=== PATIENT | male | born 1945 | race Asian ===

== ENCOUNTER 2017-12-14 08:00 | Outpatient (CLI) | payer MEDICARE, OTHER ==
[2017-12-14 18:52] LABS: CALCIUM 9.2 mg/dL (8.5-10.3); CREATININE 1.2 mg/dL (0.6-1.2)
[2017-12-14 18:59] LABS: BASOPHILS # (AUTO) 0.1 10^3/uL (0.0-0.1); BASOPHILS % (AUTO) 1.1 %; EOSINOPHILS # (AUTO) 0.2 10^3/uL (0.0-0.7); EOSINOPHILS % (AUTO) 4.4 %; HGB - HEMOGLOBIN 15.6 g/dL (14.0-18.0); LYMPHOCYTES # (AUTO) 1.5 10^3/uL (1.5-3.5); LYMPHOCYTES % (AUTO) 29.6 %; MEAN CORPUSCULAR HEMOGLOBIN 30.3 pg (27.0-31.0); MEAN CORPUSCULAR HGB CONC 33.8 g/dL (32.0-36.0); MEAN CORPUSCULAR VOLUME 89.7 fL (80.0-94.0); MEAN PLATELET VOLUME 7.6 fL (7.4-11.4); MONOCYTES # (AUTO) 0.6 10^3/uL (0.0-1.0); MONOCYTES % (AUTO) 11.4 %; NEUTROPHILS # (AUTO) 2.7 10^3/uL (1.5-6.6); NEUTROPHILS % (AUTO) 53.5 %; PLT - PLATELET COUNT 196 10^3/uL (130-450); RED BLOOD COUNT 5.13 10^6/uL (4.70-6.10); RED CELL DISTRIBUTION WIDTH 13.6 % (12.0-15.0)
== END 2017-12-14 08:01 | disposition home or self-care (01) ==
LOC: LAB.WCP 08:00
PROVIDERS: ATTEND Family Medicine
DX: I12.9 Hypertensive chronic kidney disease with stage 1 through stage 4 chronic kidney disease, or unspecified chronic kidney disease (principal); N18.3 Chronic kidney disease, stage 3 (moderate); E11.9 Type 2 diabetes mellitus without complications
CPT/HCPCS: 36415; 80048; 85025

== ENCOUNTER 2018-03-21 10:02 | Emergency (ER) | payer MEDICARE, OTHER ==
[2018-03-21 10:53] LABS: BASOPHILS % (AUTO) 0.9 %; EOSINOPHILS # (AUTO) 0.2 10^3/uL (0.0-0.7); EOSINOPHILS % (AUTO) 3.3 %; HGB - HEMOGLOBIN 15.3 g/dL (14.0-18.0); LYMPHOCYTES % (AUTO) 22.1 %; MEAN CORPUSCULAR HEMOGLOBIN 30.7 pg (27.0-31.0); MEAN CORPUSCULAR HGB CONC 34.8 g/dL (32.0-36.0); MEAN CORPUSCULAR VOLUME 88.4 fL (80.0-94.0); MEAN PLATELET VOLUME 6.7 fL (7.4-11.4); MONOCYTES # (AUTO) 0.4 10^3/uL (0.0-1.0); NEUTROPHILS % (AUTO) 64.7 %; PLT - PLATELET COUNT 179 10^3/uL (130-450); RED BLOOD COUNT 4.97 10^6/uL (4.70-6.10); RED CELL DISTRIBUTION WIDTH 13.6 % (12.0-15.0); WHITE BLOOD COUNT 4.6 x10^3/uL (4.8-10.8)
[2018-03-21 11:06] LABS: ALBUMIN 3.8 g/dL (3.2-5.5); ALBUMIN/GLOBULIN RATIO 1.3 (1.0-2.2); BILIRUBIN,TOTAL 1.1 mg/dL (0.2-1.0); CREATININE 1.2 mg/dL (0.6-1.2); TOTAL PROTEIN 6.7 g/dL (6.7-8.2)
--- NOTE | 2018-03-21 11:25 | CT Report ---
Reason: dizzy Procedure Date: 03/21/2018 Accession Number: [id number] / [id number] Procedure: CT - Head W/O CPT Code: FULL RESULT: EXAM: CT HEAD EXAM DATE: 03/21/2018 11:03 AM. CLINICAL HISTORY: Dizzy. COMPARISON: None. TECHNIQUE: Multiaxial CT images were obtained from the foramen magnum to the vertex. Reformats: Sagittal and coronal. IV contrast: None. In accordance with CT protocol optimization, one or more of the following dose reduction techniques were utilized for this exam: automated exposure control, adjustment of mA and/or KV based on patient size, or use of iterative reconstructive technique. FINDINGS: Parenchyma: No intraparenchymal hemorrhage. No evidence of mass, midline shift, or CT findings of infarction. Friend-white differentiation is distinct. Extraaxial Spaces: Normal for age. No subdural or epidural collections identified. Ventricles: Normal in size and position. Sinuses and Orbits: Imaged paranasal sinuses, orbits, and mastoids show no significant abnormality. Bones: No evidence of fracture or calvarial defect. Other: None. IMPRESSION: No acute intracranial abnormality. RADIA
[2018-03-21 11:29] LABS: BILIRUBIN,URINE NEGATIVE (NEGATIVE); GLUCOSE, URINE (UA) NEGATIVE (NEGATIVE); KETONES,URINE (UA) NEGATIVE (NEGATIVE); LEUKOCYTE ESTERASE, URINE NEGATIVE (NEGATIVE); NITRITE,URINE NEGATIVE (NEGATIVE); OCCULT BLOOD,URINE TRACE-INTA (NEGATIVE); PH,URINE 6.5 PH (5.0-7.5); PROTEIN,URINE NEGATIVE (NEGATIVE); UROBILINOGEN,URINE 0.2 (NORMAL) E.U./dL (NORMAL)
[2018-03-21 11:34] LABS: CLARITY,URINE CLEAR (CLEAR)
--- NOTE | 2018-03-21 12:37 | ED Physician Documentation ---
History of Present Illness - Stated complaint Stated Complaint: DIZZY WHEN GETTING UP - Chief complaint Chief Complaint: Neuro - History obtained from History obtained from: Patient, Family - History of Present Illness Timing: How many days ago (5) Pain level max: 0 Pain level now: 0 - Additonal information Additional information: 72-year-old male with history of hypertension and borderline diabetes here with complain of dizziness the past 5 days described as room spinning when he gets up from lying position to sitting up and standing up And when turning his head a certain position. Patient stated he had one episode of nausea and vomiting 5 days ago. He also stated that he had been having ringing on his ears the past week or so. Patient wears a hearing aid. Last time it was checked was a year ago. Patient denies any trauma, travel, sick contacts or recent illness. Review of Systems Ten Systems: 10 systems reviewed and negative Constitutional: denies: Fever, Chills, Myalgias, Fatigue Eyes: denies: Loss of vision, Decreased vision Nose: denies: Rhinorrhea / runny nose, Congestion Throat: denies: Sore throat Cardiac: denies: Chest pain / pressure Respiratory: denies: Dyspnea, Cough GI: reports: Nausea, Vomiting. denies: Abdominal Pain, Diarrhea Musculoskeletal: denies: Neck pain, Back pain, Extremity pain Neurologic: denies: Generalized weakness, Focal weakness, Numbness, Difficulty speaking, Near syncope, Syncope, Confused, Altered mental status, Headache, Head injury, LOC PD PAST MEDICAL HISTORY - Past Medical History Cardiovascular: Hypertension Endocrine/Autoimmune: HyPOthyroidism HEENT: Other Musculoskeletal: Gout - Past Surgical History HEENT: Other - Present Medications Home Medications: Ambulatory Orders Medication Instructions Recorded Confirmed Alfuzosin HCl [Alfuzosin HCl ER] 03/21/18 Allopurinol 03/21/18 Levothyroxine Sodium [Synthroid] 03/21/18 Losartan [Cozaar] 03/21/18 Meclizine [Antivert] 12.5 mg PO Q6H PRN #20 tablet 03/21/18 Metoprolol Succinate [Toprol Xl] 03/21/18 Simvastatin 03/21/18 hydroCHLOROthiazide 03/21/18 [Hydrochlorothiazide] - Allergies Allergies/Adverse Reactions: Allergies Allergy/AdvReac Type Severity Reaction Status Date / Time No Known Drug Allergies Allergy Verified 03/21/18 10:23 - Social History Does the pt smoke?: No Smoking Status: Never smoker Does the pt drink ETOH?: No Does the pt have substance abuse?: No - Immunizations Immunizations are current?: Yes PD ED PE NORMAL - Vitals Vital signs reviewed: Yes - General General: Alert and oriented X 3, No acute distress, Well developed/nourished - HEENT HEENT: Atraumatic, PERRL, EOMI, Moist mucous membranes, Pharynx benign, Other (Hearing aid in place. No nystagmus.) - Neck Neck: Supple, no meningeal sign, No bony TTP - Cardiac Cardiac: RRR, No murmur - Respiratory Respiratory: Clear bilaterally - Abdomen Abdomen: Normal bowel sounds, Soft, Non tender, Non distended - Derm Derm: Normal color, Warm and dry - Extremities Extremities: No deformity, No tenderness to palpate, Normal ROM s pain, No edema - Neuro Neuro: Alert and oriented X 3, measurer machine 2-12 intact, No motor deficit, No sensory deficit, Normal speech - Psych Psych: Normal mood, Normal affect Results - Vitals Vitals: Vital Signs - 24 hr 03/21/18 03/21/18 03/21/18 10:17 11:10 11:13 Temperature 36.7 C Heart Rate 66 52 L 54 L Heart Rate [ Sitting] Heart Rate [ Standing] Heart Rate [ Supine] Respiratory 18 18 20 Rate Blood Pressure 182/83 H 167/79 H 154/78 H Blood Pressure [Sitting] Blood Pressure [Standing] Blood Pressure [Supine] O2 Saturation 98 98 99 03/21/18 03/21/18 03/21/18 11:45 11:46 11:49 Temperature Heart Rate Heart Rate [ 53 L Sitting] Heart Rate [ 63 Standing] Heart Rate [ 51 L Supine] Respiratory Rate Blood Pressure Blood Pressure 164/92 H [Sitting] Blood Pressure 143/86 H [Standing] Blood Pressure 167/76 H [Supine] O2 Saturation Oxygen O2 Source Room air - EKG (time done) 1017 Rate: Rate (enter#) (66) Rhythm: NSR [place]: Normal Intervals: Prolonged [place] QRS: Normal Ischemia: Normal ST segments - Labs Labs: Laboratory Tests 03/21/18 03/21/18 03/21/18 10:46 10:46 10:46 WBC 4.6 L RBC 4.97 Hgb 15.3 Hct 43.9 MCV 88.4 MCH 30.7 MCHC 34.8 RDW 13.6 Plt Count 179 MPV 6.7 L Neut # (Auto) 3.0 Lymph # (Auto) 1.0 L [place] # (Auto) 0.4 Eos # (Auto) 0.2 Baso # (Auto) 0.0 Absolute Nucleated RBC 0.00 Nucleated RBC % 0.0 Sodium 133 L Potassium 3.5 Chloride 98 L Carbon Dioxide 29 Anion Gap 6.0 BUN 21 H Creatinine 1.2 Estimated GFR (MDRD) 60 L Glucose 183 H Calcium 9.0 Total Bilirubin 1.1 H AST 27 ALT 33 Alkaline Phosphatase 60 Troponin I < 0.04 Total Protein 6.7 Albumin 3.8 Globulin 2.9 Albumin/Globulin Ratio 1.3 Lipase 30 Urine Color Urine Clarity Urine pH Ur Specific [place] Urine Protein Urine Glucose (UA) Urine Ketones Urine Occult Blood Urine Nitrite Urine Bilirubin Urine Urobilinogen Ur Leukocyte Esterase Ur Microscopic Review Urine Culture Comments 03/21/18 11:15 WBC RBC Hgb Hct MCV MCH MCHC RDW Plt Count MPV Neut # (Auto) Lymph # (Auto) [place] # (Auto) Eos # (Auto) Baso # (Auto) Absolute Nucleated RBC Nucleated RBC % Sodium Potassium Chloride Carbon Dioxide Anion Gap BUN Creatinine Estimated GFR (MDRD) Glucose Calcium Total Bilirubin AST ALT Alkaline Phosphatase Troponin I Total Protein Albumin Globulin Albumin/Globulin Ratio Lipase Urine Color YELLOW Urine Clarity CLEAR Urine pH 6.5 Ur Specific [place] 1.015 Urine Protein NEGATIVE Urine Glucose (UA) NEGATIVE Urine Ketones NEGATIVE Urine Occult Blood TRACE-INTA Urine Nitrite NEGATIVE Urine Bilirubin NEGATIVE Urine Urobilinogen 0.2 (NORMAL) Ur Leukocyte Esterase NEGATIVE Ur Microscopic Review NOT INDICATED Urine Culture Comments NOT INDICATED PD MEDICAL DECISION MAKING - ED course Complexity details: reviewed results, re-evaluated patient, considered differential (Benign positional vertigo, intracranial bleed, TIA, anemia, electrolyte imbalance), d/w patient, d/w family ED course: [address] head scan in no acute distress.1200 patient stated tolerated orthostatic vital signs. Patient and inform of test results. Patient agrees to go home. We will discharged on meclizine. He will follow-up with his primary doctor and ENT doctor. Departure - Departure Disposition: Home, Self Care Clinical Impression: Dizziness, Benign positional vertigo Condition: Stable Instructions: ED Dizziness UKO, ED Vertigo Unspecified, Meclizine Prescriptions: Meclizine [Antivert] 12.5 mg PO Q6H PRN #20 tablet PRN Reason: Vertigo Comments: Take the meclizine as needed for your vertigo. Call your primary doctor and ENT doctor for reevaluation and recheck of your hearing aids. Maintain safety. Get up slowly. If worse return to the emergency room.
[2018-03-21 12:55] VITALS: BP 152/72
== END 2018-03-21 12:55 | disposition home or self-care (01) ==
LOC: ED 10:02
DX: H81.10 Benign paroxysmal vertigo, unspecified ear (principal); I44.0 Atrioventricular block, first degree; I10 Essential (primary) hypertension; E11.9 Type 2 diabetes mellitus without complications; E03.9 Hypothyroidism, unspecified
CPT/HCPCS: 36415; 70450; 80053; 81001; 81003; 83690; 84484; 85025; 87086; 93005; 99283; 99284

== ENCOUNTER 2018-06-23 06:44 | Day surgery (SDC) | payer MEDICARE, OTHER ==
[2018-06-23] MEDS ORDERED: KETOROLAC 0.45% OPHTH DROPS ONE (06:58)
[2018-06-23] MEDS ORDERED: PHENYLEPHRINE 2.5% OPHTH 2 ML DROPS ONE (06:59)
[2018-06-23] MEDS ORDERED: CYCLOPENTOLATE 1% OPHTH DROPS 2 ML ONE (06:59)
[2018-06-23] MEDS ORDERED: PROPARACAINE 0.5% OPHTH DROPS 15 ML ONE (06:59)
[2018-06-23] MEDS ORDERED: TRIAMCIN/MOXIFLOX OPHTHALMIC 0.6 ML VIAL IO ONE ×2 (07:07→08:29)
[2018-06-23] MEDS ORDERED: EPINEPHrine 1 MG/ML AMP ONE (07:07)
[2018-06-23] MEDS ORDERED: VANCOMYCIN OPHTHALMI 8MG/0.8ML 8 MG/0.8 ML SYRINGE IO ONE ×2 (07:08→08:30)
[2018-06-23] MEDS ORDERED: BRIMONIDINE 0.2% OPHTH DROPS 5 ML ONE (07:08)
[2018-06-23] MEDS ORDERED: TIMOLOL 0.5% OPHTH DROPS ONE (07:08)
[2018-06-23] MEDS ORDERED: BSS/LIDOCAINE/EPINEPHRINE 1 ML SYRINGE ONE (07:08)
[2018-06-23] MEDS ORDERED: PHENYLEPHRINE 2.5% OPHTH 2 ML DROPS RIGHTEYE ONE (07:20)
[2018-06-23] MEDS ORDERED: PROPARACAINE 0.5% OPHTH DROPS 15 ML RIGHTEYE ONE (07:20)
[2018-06-23] MEDS ORDERED: CYCLOPENTOLATE 1% OPHTH DROPS 2 ML RIGHTEYE ONE (07:20)
[2018-06-23] MEDS ORDERED: KETOROLAC 0.45% OPHTH DROPS RIGHTEYE ONE (07:20)
[2018-06-23] MEDS ORDERED: LACTATED RINGERS 500 ML IV ONE (07:28)
--- NOTE | 2018-06-23 07:45 | ANESTHESIA ---
Pre-Anesthesia VS, & Labs - Diagnosis left nuclear sclerotic cataract - Procedure left extraction cataract with lens implant Vital Signs: Temp Pulse Resp BP Pulse Ox 36.7 C 56 L 16 138/72 H 94 06/23/18 07:18 06/23/18 07:18 06/23/18 07:18 06/23/18 07:18 06/23/18 07:18 Height 5 ft 7 in Weight (kg) 102.5 kg Body Mass Index 34.4 - NPO >8 hours Home Medications and Allergies Home Medications: Ambulatory Orders Aspirin 81 mg PO DAILY 06/23/18 Alfuzosin HCl [Alfuzosin HCl ER] 10 mg PO DAILY 03/21/18 Allopurinol 50 mg PO DAILY 03/21/18 Levothyroxine Sodium [Synthroid] 15 mcg PO DAILY 03/21/18 Losartan [Cozaar] 50 mg PO DAILY 03/21/18 Metoprolol Succinate [Toprol Xl] 100 mg PO DAILY 03/21/18 Simvastatin 40 mg PO DAILY 03/21/18 hydroCHLOROthiazide [Hydrochlorothiazide] 25 mg PO DAILY 03/21/18 Aspirin 81 mg PO DAILY 06/23/18 Allergies/Adverse Reactions: Allergies Allergy/AdvReac Type Severity Reaction Status Date / Time No Known Drug Allergies Allergy Verified 06/23/18 07:31 Anes History & Medical History - Anesthetic History Anesthesia Complications: reports: No previous complications Family history of Anesthesia Complications: Denies Family history of Malignant Hyperthermia: Denies - Medical History Cardiovascular: reports: Hypertension, High cholesterol Pulmonary: reports: None Gastrointestinal: reports: None Urinary: reports: Renal insuffiency Musculoskeletal: reports: Gout Endocrine/Autoimmune: reports: HyPOthyroidism Skin: reports: None Smoking Status: Never smoker - Surgical History Eyes Ears Nose Throat (EENT): Other Exam General: Alert, Oriented x3, Cooperative, No acute distress Dental: Partials Upper Mouth Openin Fingerbreadth Neck Mobility: Normal Mallampati classification: III Thyromental Distance: greater than 6 cm Respiratory: Lungs clear, Normal breath sounds, No respiratory distress, No accessory muscle use Cardiovascular: Normal S1, Normal S2 Mental/Cognitive Status: Alert/Oriented X3, Normal for patient Plan Anesthesia Type: MAC Consent for Procedure(s) Verified and Reviewed: Yes Code Status: Attempt Resuscitation ASA classification: 2-Mild systemic disease Is this case an emergency?: No
[2018-06-23] MEDS ORDERED: MIDAZOLAM 2 MG/2 ML VIAL IVP ONE (08:27)
[2018-06-23] MEDS ORDERED: fentaNYL 100 MCG/2 ML VIAL IVP ONE (08:27)
[2018-06-23] MEDS ORDERED: EPINEPHrine 1 MG/ML AMP IVP ONE (08:28)
[2018-06-23] MEDS ORDERED: BRIMONIDINE 0.2% OPHTH DROPS 5 ML OPTH ONE (08:28)
[2018-06-23] MEDS ORDERED: BSS/LIDOCAINE/EPINEPHRINE 1 ML SYRINGE IO ONE (08:29)
[2018-06-23] MEDS ORDERED: CHONDR SULF/HYALURONATE SYRINGE IO ONE (08:29)
[2018-06-23] MEDS ORDERED: TIMOLOL 0.5% OPHTH DROPS OPTH ONE (08:29)
[2018-06-23 08:51] VITALS: BP 120/66
--- NOTE | 2018-06-23 10:52 | OPERATIVE REPORT ---
DATE OF SERVICE: 06/23/2018 Physician: Jamal Harrell MD PREOPERATIVE DIAGNOSIS: Visually significant cataract, left eye. This was his first cataract surger y. POSTOPERATIVE DIAGNOSIS: Visually significant cataract, left eye. This was his first cataract surge ry. NAME OF PROCEDURE: Phacoemulsification with posterior chamber intraocular lens implant, left eye. SURGEON: Jamal Harrell MD ANESTHESIA: Monitored anesthesia care. COMPLICATIONS: None. OPERATIVE INDICATIONS: This is a 73-year-old man with progressive vision loss in the left eye due to 4+ nuclear sclerotic cataract. Best corrected visual acuity was 20/70 with glare to 20/100 in the l eft eye. Indications for surgery were overall decrease in vision, difficulty seeing words on a compu ter screen, difficulty reading, difficulty seeing words, closed captions or game scores on TV, diffic ulty seeing street signs, difficulty driving in low light or at night, difficulty driving at night be cause of headlights from other vehicles, difficulty with glare or bright lights in any situation, and difficulty tracking a golf ball. He was consented at length concerning risks and benefits of catara ct surgery, after which he expressed a desire to proceed with surgery. OPERATIVE PROCEDURE: The patient was taken to OR #3 and placed under monitored anesthesia care. A s urgical timeout was conducted confirming correct patient, correct procedure, and correct surgical sit e. He was given topical anesthesia and then prepped and draped in the usual sterile fashion. The ey e was entered at the 6 and 3 o'clock positions. Intracameral Shugarcaine was injected into the anter ior chamber, followed by Viscoat. A continuous-tear curvilinear capsulorrhexis was performed. The n ucleus was hydrodissected and phacoemulsified and the cortex evacuated using automated infusion and a spiration. Provisc was injected in the capsular bag, and a 20.0 diopter intraocular lens inserted in the bag. Approximately 0.8 mL of a mixture of triamcinolone, moxifloxacin and vancomycin was inject ed subconjunctivally in the superior quadrant for infection and inflammation prophylaxis. I and A, w as used to evacuate the viscoelastic materials. The eye was inflated to physiologic pressure using b alanced salt solution and found to be watertight. Patient was taken from the operating room in good condition with postoperative instructions. TD: 06/23/2018 08:54
== END 2018-06-23 06:45 | disposition home or self-care (01) ==
LOC: SDS 06:44
PROVIDERS: ATTEND Ophthalmology
PROC: 08RK3JZ Replacement of Left Lens with Synthetic Substitute, Percutaneous Approach (ICD-10-PCS; principal; 2018-06-23 08:30)
DX: H25.12 Age-related nuclear cataract, left eye (principal); N40.0 Benign prostatic hyperplasia without lower urinary tract symptoms; I10 Essential (primary) hypertension; M10.9 Gout, unspecified; E03.9 Hypothyroidism, unspecified; Z79.899 Other long term (current) drug therapy; Z87.891 Personal history of nicotine dependence; Z79.82 Long term (current) use of aspirin
CPT/HCPCS: 66984; A9270; J3490; V2632

== ENCOUNTER 2019-01-27 09:13 | Outpatient (CLI) | payer MEDICARE, OTHER ==
[2019-01-27 13:38] LABS: BASOPHILS # (AUTO) 0.1 10^3/uL (0.0-0.1); BASOPHILS % (AUTO) 1.8 %; EOSINOPHILS # (AUTO) 0.2 10^3/uL (0.0-0.7); EOSINOPHILS % (AUTO) 3.9 %; HGB - HEMOGLOBIN 15.7 g/dL (14.0-18.0); LYMPHOCYTES # (AUTO) 1.9 10^3/uL (1.5-3.5); LYMPHOCYTES % (AUTO) 33.4 %; MEAN CORPUSCULAR HEMOGLOBIN 29.2 pg (27.0-31.0); MEAN CORPUSCULAR HGB CONC 33.1 g/dL (32.0-36.0); MEAN CORPUSCULAR VOLUME 88.1 fL (80.0-94.0); MEAN PLATELET VOLUME 9.4 fL (7.4-11.4); MONOCYTES # (AUTO) 0.6 10^3/uL (0.0-1.0); MONOCYTES % (AUTO) 9.9 %; NEUTROPHILS # (AUTO) 2.8 10^3/uL (1.5-6.6); NEUTROPHILS % (AUTO) 50.6 %; PLT - PLATELET COUNT 188 10^3/uL (130-450); RED BLOOD COUNT 5.38 10^6/uL (4.70-6.10); RED CELL DISTRIBUTION WIDTH 12.8 % (12.0-15.0); WHITE BLOOD COUNT 5.6 x10^3/uL (4.8-10.8)
[2019-01-27 14:43] LABS: ALBUMIN/GLOBULIN RATIO 1.5 (1.0-2.2); ALKALINE PHOSPHATASE 56 IU/L (42-121); ALT ALANINE AMINOTRANSFERASE 29 IU/L (10-60); AST ASPARTATE AMINOTRANSFERASE 27 IU/L (10-42); BUN - BLOOD UREA NITROGEN 22 mg/dL (6-20); CALCIUM 9.7 mg/dL (8.5-10.3); CARBON DIOXIDE - CO2 29 mmol/L (21-32); CHLORIDE 102 mmol/L (101-111); CHOL/HDL RATIO 3.2 (<5.0); CHOLESTEROL 132 mg/dL; CREATININE 1.1 mg/dL (0.6-1.2); GFR - MDRD 66 (>89); GLUCOSE 140 mg/dL (70-100); HDL CHOLESTEROL 41 mg/dL; LDL CHOLESTEROL,CALCULATED 58 mg/dL; LDL/HDL RATIO 1.4 (<3.6); SODIUM 139 mmol/L (135-145); TOTAL PROTEIN 6.7 g/dL (6.7-8.2); VLDL CHOLESTEROL 33 mg/dL
[2019-01-27 15:49] LABS: FREE T4 (FREE THYROXINE) 1.24 ng/dL (0.58-1.64)
== END 2019-01-27 23:59 | disposition home or self-care (01) ==
LOC: LAB.WCP 09:13
PROVIDERS: ATTEND Family Medicine
DX: I10 Essential (primary) hypertension (principal); E11.9 Type 2 diabetes mellitus without complications; E78.5 Hyperlipidemia, unspecified
CPT/HCPCS: 36415; 80053; 80061; 83721; 84439; 84443; 85025

== ENCOUNTER 2019-05-24 13:51 | Outpatient (CLI) | payer MEDICARE, OTHER ==
[2019-05-24 19:29] LABS: HEMOGLOBIN A1C 0.79 g/dL; HEMOGLOBIN A1C % 6.7 % (4.6-6.2)
== END 2019-05-24 23:59 | disposition home or self-care (01) ==
LOC: LAB.WCP 13:51
PROVIDERS: ATTEND Family Medicine
DX: E11.9 Type 2 diabetes mellitus without complications (principal)
CPT/HCPCS: 36415; 83036

== ENCOUNTER 2019-07-26 11:01 | Outpatient (CLI) | payer MEDICARE, OTHER ==
[2019-07-26 13:58] LABS: CALCIUM 9.3 mg/dL (8.5-10.3); CREATININE 1.3 mg/dL (0.6-1.2)
== END 2019-07-26 23:59 | disposition home or self-care (01) ==
LOC: LAB.WCP 11:01
PROVIDERS: ATTEND Family Medicine
DX: I10 Essential (primary) hypertension (principal)
CPT/HCPCS: 36415; 80048

== ENCOUNTER 2020-02-17 14:31 | Outpatient (CLI) | payer MEDICARE, OTHER ==
--- NOTE | 2020-02-17 16:14 | Ultrasound Report ---
PROCEDURE: Duplex Ext Veins Left INDICATIONS: LT LEG PAIN TECHNIQUE: Real-time imaging, as well as color and pulse Doppler interrogation, were performed of the lower extr emity deep veins from the inguinal ligament to the popliteal fossa. COMPARISON: None. FINDINGS: The deep veins are normally compressible, and free of intraluminal thrombus. Color and pu lse Doppler demonstrate normal phasic intraluminal flow. There is normal augmentation response to di stal compression maneuver. IMPRESSION: No evidence of DVT, left lower extremity. Reviewed by: Juancarlos Cooney MD on 02/17/2020 4:12 PM PST Approved by: Juancarlos Conoey MD on 02/17/2020 4:12 PM PST Station ID: [id number]
== END 2020-02-17 14:32 | disposition home or self-care (01) ==
LOC: DI 14:31
PROVIDERS: ATTEND Family Medicine
DX: M79.605 Pain in left leg (principal)

== ENCOUNTER 2020-07-19 11:29 | Day surgery (SDC) | payer MEDICARE, OTHER ==
[2020-07-19] MEDS ORDERED: LACTATED RINGERS 1,000 ML IV ONE ×2 (11:43→14:59)
[2020-07-19] MEDS ORDERED: MIDAZOLAM 2 MG/2 ML VIAL ONE ×3 (14:01→14:02)
[2020-07-19] MEDS ORDERED: fentaNYL 250 MCG/5 ML VIAL ONE (14:01)
--- NOTE | 2020-07-19 14:13 | HISTORY & PHYSICAL EXAMINATION ---
Chief Complaint - Chief Complaint Chief Complaint: History colon polyp History of Present Illness - History Obtained From Records Reviewed: yes History obtained from: pt Exam Limitations: none - History of Present Illness HPI Comment/Other: Here for colon cancer surveillance History - Past Medical History Cardiovascular: reports: Hypertension, High cholesterol Respiratory: reports: None Endocrine/Autoimmune: reports: Type 2 diabetes, HyPOthyroidism GI: reports: None : reports: Renal insuffiency HEENT: reports: Other Psych: reports: None Musculoskeletal: reports: Gout Derm: reports: None MRSA Hx?: No - Past Surgical History General: reports: Colonoscopy HEENT: reports: Other Meds/Allgy - Home Medications Home Medications: Ambulatory Orders Medication Instructions Recorded Confirmed Levothyroxine Sodium [Synthroid] 15 mcg PO DAILY 03/21/18 07/19/20 Losartan [Cozaar] 50 mg PO DAILY 03/21/18 07/19/20 Metoprolol Succinate [Toprol Xl] 100 mg PO DAILY 03/21/18 07/19/20 Simvastatin 40 mg PO DAILY 03/21/18 07/19/20 allopurinoL [Allopurinol] 50 mg PO DAILY 03/21/18 07/19/20 Aspirin 81 mg PO DAILY 06/23/18 07/19/20 Tamsulosin [Flomax] 0.4 mg PO DAILY 07/18/20 07/19/20 metFORMIN [Glucophage] 500 mg PO BID 07/18/20 07/19/20 - Allergies Allergies/Adverse Reactions: Allergies Allergy/AdvReac Type Severity Reaction Status Date / Time No Known Drug Allergies Allergy Verified 06/23/18 07:31 Review of Systems - Other Findings Other Findings: 10 pt ros as above otherwise unremarkable Exam - Vital Signs Reviewed Vital Signs: Yes Vital Signs: Vital Signs x48h Temp Pulse Resp BP Pulse Ox 07/19/20 11:43 36.3 C L 70 12 161/87 H 100 - Physical Exam General Appearance: positive: No acute distress, Alert Eyes Bilateral: positive: PERRL, EOMI ENT: positive: No signs of dehydration Neck: positive: No JVD Respiratory: positive: No respiratory distress, Breath sounds nml Cardiovascular: positive: Regular rate & rhythm Abdomen: positive: Non-tender, No distention Neurologic/Psychiatric: positive: Oriented x3 Conclusion/Plan - Problem List (1) History of adenomatous polyp of colon Conclusion/Plan: plan colonoscopy. parq held and consent obtained
[2020-07-19 15:17] VITALS: BP 120/79
== END 2020-07-19 11:30 | disposition home or self-care (01) ==
LOC: SDS 11:29
PROVIDERS: ATTEND Surgery
PROC: 0DBK8ZX Excision of Ascending Colon, Via Natural or Artificial Opening Endoscopic, Diagnostic (ICD-10-PCS; 2020-07-19)
PROC: 0DBL8ZZ Excision of Transverse Colon, Via Natural or Artificial Opening Endoscopic (ICD-10-PCS; principal; 2020-07-19 12:30)
DX: Z12.11 Encounter for screening for malignant neoplasm of colon (principal); D12.2 Benign neoplasm of ascending colon; D12.0 Benign neoplasm of cecum; D12.3 Benign neoplasm of transverse colon; K62.1 Rectal polyp; K57.30 Diverticulosis of large intestine without perforation or abscess without bleeding; K63.89 Other specified diseases of intestine; I10 Essential (primary) hypertension; E78.00 Pure hypercholesterolemia, unspecified; E11.9 Type 2 diabetes mellitus without complications; E03.9 Hypothyroidism, unspecified; N28.9 Disorder of kidney and ureter, unspecified; M10.9 Gout, unspecified; Z79.82 Long term (current) use of aspirin; Z79.84 Long term (current) use of oral hypoglycemic drugs; Z79.899 Other long term (current) drug therapy
CPT/HCPCS: 45380; 45385; J3010; J7120

== ENCOUNTER 2020-08-07 08:00 | Outpatient (CLI) | payer MEDICARE, OTHER ==
[2020-08-07 12:05] LABS: BASOPHILS # (AUTO) 0.1 10^3/uL (0.0-0.1); BASOPHILS % (AUTO) 1.1 %; EOSINOPHILS # (AUTO) 0.2 10^3/uL (0.0-0.7); EOSINOPHILS % (AUTO) 2.7 %; HGB - HEMOGLOBIN 15.7 g/dL (14.0-18.0); LYMPHOCYTES % (AUTO) 30.2 %; MEAN CORPUSCULAR HEMOGLOBIN 30.4 pg (27.0-31.0); MEAN CORPUSCULAR HGB CONC 34.1 g/dL (32.0-36.0); MEAN CORPUSCULAR VOLUME 89.1 fL (80.0-94.0); MEAN PLATELET VOLUME 9.1 fL (7.4-11.4); MONOCYTES # (AUTO) 0.6 10^3/uL (0.0-1.0); MONOCYTES % (AUTO) 9.2 %; NEUTROPHILS # (AUTO) 3.8 10^3/uL (1.5-6.6); NEUTROPHILS % (AUTO) 56.5 %; PLT - PLATELET COUNT 211 10^3/uL (130-450); RED BLOOD COUNT 5.16 10^6/uL (4.70-6.10); RED CELL DISTRIBUTION WIDTH 12.8 % (12.0-15.0); WHITE BLOOD COUNT 6.6 x10^3/uL (4.8-10.8)
[2020-08-07 12:33] LABS: ALBUMIN 4.4 g/dL (3.2-5.5); ALBUMIN/GLOBULIN RATIO 1.6 (1.0-2.2); BILIRUBIN,TOTAL 1.2 mg/dL (0.2-1.0); CALCIUM 9.7 mg/dL (8.5-10.3); CREATININE 1.2 mg/dL (0.6-1.2); POTASSIUM 3.9 mmol/L (3.5-5.0); TOTAL PROTEIN 7.2 g/dL (6.7-8.2); URIC ACID 5.2 mg/dL (2.6-7.2)
[2020-08-07 12:45] LABS: PSA FREE 0.404 ng/mL (0.16-2.81)
[2020-08-07 12:47] LABS: PSA TOTAL 2.081 ng/mL (0.000-2.000)
[2020-08-07 12:52] LABS: THYROID STIMULATING HORMONE 0.55 uIU/mL (0.34-5.60)
[2020-08-07 13:00] LABS: CREATININE,URINE 204.8 mg/dL; MICROALBUM/CREATININE RATIO,UR 2.4 ug/mg (<30.0); MICROALBUMIN,URINE 0.5 mg/dL (0-300.0)
[2020-08-07 13:43] LABS: ESTIMATED AVERAGE GLUCOSE 128 mg/dL (70-100); HEMOGLOBIN A1c% 6.1 % (4.27-6.07)
== END 2020-08-07 23:59 | disposition home or self-care (01) ==
LOC: LAB.WCP 08:00
PROVIDERS: ATTEND Internal Medicine
DX: E11.9 Type 2 diabetes mellitus without complications (principal); R97.20 Elevated prostate specific antigen [PSA]; E04.2 Nontoxic multinodular goiter; E79.0 Hyperuricemia without signs of inflammatory arthritis and tophaceous disease
CPT/HCPCS: 36415; 80053; 82043; 82570; 83036; 84153; 84154; 84443; 84550; 85025

== ENCOUNTER 2020-08-29 15:07 | Emergency (ER) | payer MEDICARE, OTHER ==
[2020-08-29 15:37] LABS: BASOPHILS # (AUTO) 0.1 10^3/uL (0.0-0.1); BASOPHILS % (AUTO) 1.5 %; EOSINOPHILS # (AUTO) 0.1 10^3/uL (0.0-0.7); EOSINOPHILS % (AUTO) 1.4 %; HCT - HEMATOCRIT 44.7 % (42.0-52.0); HGB - HEMOGLOBIN 15.4 g/dL (14.0-18.0); LYMPHOCYTES # (AUTO) 1.3 10^3/uL (1.5-3.5); MEAN CORPUSCULAR HEMOGLOBIN 30.7 pg (27.0-31.0); MEAN CORPUSCULAR HGB CONC 34.5 g/dL (32.0-36.0); MEAN PLATELET VOLUME 8.6 fL (7.4-11.4); MONOCYTES # (AUTO) 0.6 10^3/uL (0.0-1.0); MONOCYTES % (AUTO) 8.9 %; NEUTROPHILS # (AUTO) 4.4 10^3/uL (1.5-6.6); NEUTROPHILS % (AUTO) 67.9 %; PLT - PLATELET COUNT 181 10^3/uL (130-450); RED BLOOD COUNT 5.02 10^6/uL (4.70-6.10); RED CELL DISTRIBUTION WIDTH 12.9 % (12.0-15.0); WHITE BLOOD COUNT 6.5 x10^3/uL (4.8-10.8)
[2020-08-29 15:50] LABS: ALBUMIN 4.7 g/dL (3.2-5.5); ALBUMIN/GLOBULIN RATIO 1.8 (1.0-2.2); BILIRUBIN,TOTAL 0.8 mg/dL (0.2-1.0); CALCIUM 10.2 mg/dL (8.5-10.3); CREATININE 1.2 mg/dL (0.6-1.2); TOTAL PROTEIN 7.3 g/dL (6.7-8.2)
--- NOTE | 2020-08-29 16:19 | XRAY Report ---
PROCEDURE: Chest 1 View X-Ray INDICATIONS: Chest Pain TECHNIQUE: One view of the chest was acquired. COMPARISON: None FINDINGS: Surgical changes and devices: None. Lungs and pleura: No pleural effusions or pneumothorax. Minimal left basilar atelectasis and or infi ltrate noted. Remainder the lungs and pleural spaces are clear. Mediastinum: Mediastinal contours appear normal. Heart size is normal. Bones and chest wall: No suspicious bony lesions. Overlying soft tissues appear unremarkable. IMPRESSION: Minimal left basilar atelectasis and or infiltrate Reviewed by: Ashish Mata MD on 08/29/2020 3:17 PM AKDT Approved by: Ashish Mata MD on 08/29/2020 3:17 PM AKDT Station ID: [id number]
--- NOTE | 2020-08-29 16:38 | ED Physician Documentation ---
PD HPI CHEST PAIN - Stated complaint Stated Complaint: CP - Chief complaint Chief Complaint: Cardiac - History obtained from History obtained from: Patient - History of Present Illness Pain level max: 3 Pain level now: 0 Quality: Pressure Improved by: Nothing. No: Rest, Oxygen, Nitro, ASA, Antacids, Other medication Worsened by: No: Exertion, Inspiration, Eating, Movement, Palpation, Position Associated symptoms: No: Shortness of air, Diaphoresis, Nausea, Vomiting, Feeling faint / dizzy, General Weakness, Palpitations, Cough - Additional information Additional information: 75-year-old male states that he had right-sided chest pain yesterday for about 10 minutes today he felt like the left side of his chest was heavy. This lasted about 4 to 5 hours and has since resolved. Nothing made it better or worse. No change with activity or movement. Review of Systems Constitutional: denies: Fever, Chills Respiratory: denies: Dyspnea, Cough, Hemoptysis, Wheezing GI: denies: Vomiting, Diarrhea Skin: denies: Rash Musculoskeletal: denies: Neck pain, Back pain PD PAST MEDICAL HISTORY - Past Medical History Past Medical History: Yes Cardiovascular: Hypertension, High cholesterol Respiratory: None Endocrine/Autoimmune: Type 2 diabetes, HyPOthyroidism GI: None : Renal insuffiency HEENT: Other Psych: None Musculoskeletal: Gout Derm: None - Past Surgical History General: Colonoscopy HEENT: Other - Present Medications Home Medications: Ambulatory Orders Medication Instructions Recorded Confirmed Levothyroxine Sodium [Synthroid] 15 mcg PO DAILY 03/21/18 08/29/20 Losartan [Cozaar] 50 mg PO DAILY 03/21/18 08/29/20 Metoprolol Succinate [Toprol Xl] 100 mg PO DAILY 03/21/18 08/29/20 Simvastatin 40 mg PO DAILY 03/21/18 08/29/20 allopurinoL [Allopurinol] 50 mg PO DAILY 03/21/18 08/29/20 Aspirin 81 mg PO DAILY 06/23/18 08/29/20 Tamsulosin [Flomax] 0.4 mg PO DAILY 07/18/20 08/29/20 metFORMIN [Glucophage] 500 mg PO BID 07/18/20 08/29/20 - Allergies Allergies/Adverse Reactions: Allergies Allergy/AdvReac Type Severity Reaction Status Date / Time No Known Drug Allergies Allergy Verified 08/29/20 15:14 - Social History Does the pt smoke?: No Smoking Status: Never smoker Does the pt drink ETOH?: No Does the pt have substance abuse?: No - Immunizations Immunizations are current?: Yes PD ED PE NORMAL - Vitals Vital signs reviewed: Yes - General General: Alert and oriented X 3, No acute distress - HEENT HEENT: Moist mucous membranes - Neck Neck: Supple, no meningeal sign - Cardiac Cardiac: RRR, No murmur, Strong equal pulses, Other (No chest wall tenderness. No crepitus.) - Respiratory Respiratory: No respiratory distress - Abdomen Abdomen: Soft, Non tender, Non distended - Derm Derm: Warm and dry - Extremities Extremities: No edema, No calf tenderness / cord - Neuro Neuro: Alert and oriented X 3 - Psych Psych: Normal mood, Normal affect Results - Vitals Vitals: Vital Signs - 24 hr 08/29/20 08/29/20 08/29/20 15:14 16:00 16:16 Temperature 36.5 C Heart Rate 60 56 L Respiratory 16 16 Rate Blood Pressure 152/79 H Blood Pressure 153/79 H [Right] O2 Saturation 99 100 08/29/20 16:44 Temperature 37.1 C Heart Rate 55 L Respiratory 18 Rate Blood Pressure 161/84 H Blood Pressure [Right] O2 Saturation 99 Oxygen O2 Source Room air - EKG (time done) 1509 Rate: Rate (enter#) (60) Rhythm: NSR [place]: Normal Intervals: Normal [place] QRS: Normal Ischemia: Normal ST segments - Labs Labs: Laboratory Tests 08/29/20 08/29/20 08/29/20 15:32 15:32 15:32 WBC 6.5 RBC 5.02 Hgb 15.4 Hct 44.7 MCV 89.0 MCH 30.7 MCHC 34.5 RDW 12.9 Plt Count 181 MPV 8.6 Neut # (Auto) 4.4 Lymph # (Auto) 1.3 L [place] # (Auto) 0.6 Eos # (Auto) 0.1 Baso # (Auto) 0.1 Absolute Nucleated RBC 0.00 Nucleated RBC % 0.0 Sodium 137 Potassium 4.0 Chloride 100 L Carbon Dioxide 28 Anion Gap 9.0 BUN 24 H Creatinine 1.2 Estimated GFR (MDRD) 59 L Glucose 121 H Calcium 10.2 Total Bilirubin 0.8 AST 22 ALT 25 Alkaline Phosphatase 67 Troponin I High Sens 8.4 Total Protein 7.3 Albumin 4.7 Globulin 2.6 Albumin/Globulin Ratio 1.8 Lipase 36 - Rads (name of study) cxr Radiology: Prelim report reviewed, EMP read contemporaneously, See rad report (Minimal left basilar atelectasis and or infiltrate ) PD MEDICAL DECISION MAKING - ED course Complexity details: reviewed results, re-evaluated patient, considered differential (No ST elevation ID, no aortic dissection, no PE, no tension pneumothorax, no aortic aneurysm), d/w patient ED course: 75-year-old male with right-sided chest pain yesterday and left-sided chest heaviness today. Asymptomatic here. No acute findings on EKG, chest x-ray or laboratory testing. We will have him follow-up with his doctor for cardiac stress test. Does not want to stay in the hospital for that. Patient counseled regarding signs and symptoms for which I believe and urgent re-evaluation would be necessary. Patient with good understanding of and agreement to plan and is comfortable going home at this time This document was made in part using voice recognition software. While efforts are made to proofread this document, sound alike and grammatical errors may occur. Departure - Departure Disposition: Home, Self Care Clinical Impression: Chest pain Qualifiers: Chest pain type: unspecified Qualified Code(s): R07.9 - Chest pain, unspecified Condition: Good Instructions: ED Chest Pain Atypical Unkn Cause Follow-Up: Jarek Marrufo MD [Primary Care Provider] - Within 1 week Comments: Follow up with your doctor on Wednesday for a cardiac stress test next week. Until then limit your activity, if you develop any chest pain or worsening symptoms, you need to return for evaluation. Return if you worsen Discharge Date/Time: 08/29/20 16:45
[2020-08-29 16:48] VITALS: BP 161/84
== END 2020-08-29 16:45 | disposition home or self-care (01) ==
LOC: ED 15:07
DX: R07.89 Other chest pain (principal); I44.0 Atrioventricular block, first degree; I10 Essential (primary) hypertension; E11.9 Type 2 diabetes mellitus without complications; Z79.84 Long term (current) use of oral hypoglycemic drugs
CPT/HCPCS: 36415; 80053; 83690; 84484; 85025; 93005; 99284

== ENCOUNTER 2020-11-13 08:00 | Outpatient (CLI) | payer MEDICARE, OTHER ==
[2020-11-13 12:10] LABS: ESTIMATED AVERAGE GLUCOSE 126 mg/dL (70-100)
[2020-11-13 12:14] LABS: BUN - BLOOD UREA NITROGEN 22 mg/dL (6-20); CALCIUM 9.7 mg/dL (8.5-10.3); CARBON DIOXIDE - CO2 29 mmol/L (21-32); CHLORIDE 104 mmol/L (101-111); CHOL/HDL RATIO 2.3 (<5.0); CHOLESTEROL 112 mg/dL; CREATININE 1.2 mg/dL (0.6-1.2); GFR - MDRD 59 (>89); GLUCOSE 115 mg/dL (70-100); HDL CHOLESTEROL 48 mg/dL; LDL CHOLESTEROL,CALCULATED 43 mg/dL; LDL/HDL RATIO 0.9 (<3.6); SODIUM 139 mmol/L (135-145); TRIGLYCERIDES 103 mg/dL; VLDL CHOLESTEROL 21 mg/dL
[2020-11-13 12:19] LABS: PSA FREE 0.27 ng/mL (0.16-2.81)
[2020-11-13 12:20] LABS: PSA TOTAL 1.36 ng/mL (0.000-2.000)
== END 2020-11-13 23:59 | disposition home or self-care (01) ==
LOC: LAB.WCP 08:00
PROVIDERS: ATTEND Internal Medicine
DX: E11.29 Type 2 diabetes mellitus with other diabetic kidney complication (principal); R97.20 Elevated prostate specific antigen [PSA]
CPT/HCPCS: 36415; 80048; 80061; 83036; 83721; 84153; 84154

== ENCOUNTER 2021-06-05 09:27 | Outpatient (CLI) | payer MEDICARE, OTHER ==
[2021-06-05 12:39] LABS: CREATININE,URINE 149.4 mg/dL; MICROALBUM/CREATININE RATIO,UR 3.3 ug/mg (<30.0); MICROALBUMIN,URINE 0.5 mg/dL (0-300.0)
[2021-06-05 12:45] LABS: BUN - BLOOD UREA NITROGEN 26 mg/dL (6-20); CALCIUM 9.5 mg/dL (8.5-10.3); CARBON DIOXIDE - CO2 28 mmol/L (21-32); CHLORIDE 100 mmol/L (101-111); CHOL/HDL RATIO 2.4 (<5.0); CHOLESTEROL 120 mg/dL; CREATININE 1.4 mg/dL (0.6-1.2); GFR - MDRD 49 (>89); GLUCOSE 130 mg/dL (70-100); HDL CHOLESTEROL 49 mg/dL; LDL CHOLESTEROL,CALCULATED 52 mg/dL; LDL/HDL RATIO 1.1 (<3.6); SODIUM 136 mmol/L (135-145); TRIGLYCERIDES 97 mg/dL; URIC ACID 5.5 mg/dL (2.6-7.2); VLDL CHOLESTEROL 19 mg/dL
[2021-06-05 12:48] LABS: ESTIMATED AVERAGE GLUCOSE 134 mg/dL (70-100); HEMOGLOBIN A1c% 6.3 % (4.27-6.07)
== END 2021-06-05 09:28 | disposition home or self-care (01) ==
LOC: LAB.N 09:27
PROVIDERS: ATTEND Internal Medicine
DX: I10 Essential (primary) hypertension (principal); E11.29 Type 2 diabetes mellitus with other diabetic kidney complication; E79.0 Hyperuricemia without signs of inflammatory arthritis and tophaceous disease
CPT/HCPCS: 36415; 80048; 80061; 82043; 82570; 83036; 83721; 84550

== ENCOUNTER 2021-06-20 10:09 | Outpatient (CLI) | payer MEDICARE, OTHER | END 2021-06-20 10:10 | disposition home or self-care (01) | LOC: MAC.MOP 10:09 | PROVIDERS: ATTEND Internal Medicine | DX: R00.2 Palpitations (principal) | CPT/HCPCS: 93246 ==

== ENCOUNTER 2021-06-23 10:48 | Outpatient (CLI) | payer MEDICARE, OTHER ==
[2021-06-23] MEDS ORDERED: ALBUTEROL 1 PUFF INH STA (13:27)
== END 2021-06-23 10:49 | disposition home or self-care (01) ==
LOC: RT 10:48
PROVIDERS: ATTEND Internal Medicine
DX: R06.09 Other forms of dyspnea (principal)
CPT/HCPCS: 94060

== ENCOUNTER → 2021-07-16 | Outpatient (CLI) | payer MEDICARE, OTHER | LOC: MAC.MOP 09:00 | PROVIDERS: ATTEND Internal Medicine | DX: R00.1 Bradycardia, unspecified (principal); I44.0 Atrioventricular block, first degree; I48.91 Unspecified atrial fibrillation; I47.1 Supraventricular tachycardia; I47.2 Ventricular tachycardia; I49.5 Sick sinus syndrome; I49.1 Atrial premature depolarization; I49.3 Ventricular premature depolarization | CPT/HCPCS: 93248 ==

== ENCOUNTER 2021-07-21 14:57 | Outpatient (CLI) | payer MEDICARE, OTHER ==
--- NOTE | 2021-07-21 15:57 | XRAY Report ---
PROCEDURE: Ribs w/PA Chest LT INDICATIONS: L SIDED RIB PX TECHNIQUE: 3 views of the left ribs were acquired, along with a single view chest. COMPARISON: Chest radiographs 08/29/2020 FINDINGS: Surgical changes and devices: None. Bones and chest wall: No acute displaced rib fracture. No suspicious bony lesions. Overlying soft t issues appear unremarkable. Lungs and pleura: No pleural effusions or pneumothorax. Lungs appear clear. Mediastinum: Mediastinal contours appear normal. Heart size is normal. IMPRESSION: No acute displaced rib fracture. No pneumothorax. Reviewed by: Gerardo Akers MD on 07/21/2021 3:56 PM PDT Approved by: Gerardo Akers MD on 07/21/2021 3:56 PM PDT Station ID: [id number]
== END 2021-07-21 14:58 | disposition home or self-care (01) ==
LOC: DI.N 14:57
PROVIDERS: ATTEND Internal Medicine
DX: R07.81 Pleurodynia (principal); I48.0 Paroxysmal atrial fibrillation; E79.0 Hyperuricemia without signs of inflammatory arthritis and tophaceous disease
CPT/HCPCS: 36415; 80048; 83735; 84439; 84443; 84550; 85025

== ENCOUNTER 2021-07-21 15:13 | Outpatient (CLI) | payer MEDICARE, OTHER ==
[2021-07-21 17:56] LABS: BASOPHILS # (AUTO) 0.1 10^3/uL (0.0-0.1); BASOPHILS % (AUTO) 1.1 %; EOSINOPHILS # (AUTO) 0.2 10^3/uL (0.0-0.7); EOSINOPHILS % (AUTO) 3.1 %; HCT - HEMATOCRIT 43.7 % (42.0-52.0); HGB - HEMOGLOBIN 14.7 g/dL (14.0-18.0); LYMPHOCYTES # (AUTO) 1.4 10^3/uL (1.5-3.5); LYMPHOCYTES % (AUTO) 21.3 %; MEAN CORPUSCULAR HEMOGLOBIN 29.8 pg (27.0-31.0); MEAN CORPUSCULAR HGB CONC 33.6 g/dL (32.0-36.0); MEAN CORPUSCULAR VOLUME 88.6 fL (80.0-94.0); MEAN PLATELET VOLUME 8.7 fL (7.4-11.4); MONOCYTES # (AUTO) 0.6 10^3/uL (0.0-1.0); NEUTROPHILS # (AUTO) 4.2 10^3/uL (1.5-6.6); PLT - PLATELET COUNT 206 10^3/uL (130-450); RED BLOOD COUNT 4.93 10^6/uL (4.70-6.10); RED CELL DISTRIBUTION WIDTH 12.6 % (12.0-15.0); WHITE BLOOD COUNT 6.4 x10^3/uL (4.8-10.8)
[2021-07-21 18:08] LABS: CALCIUM 9.5 mg/dL (8.5-10.3); CREATININE 1.2 mg/dL (0.6-1.2); MAGNESIUM 2.2 mg/dL (1.7-2.8); URIC ACID 5.3 mg/dL (2.6-7.2)
[2021-07-21 18:22] LABS: THYROID STIMULATING HORMONE 0.26 uIU/mL (0.34-5.60)
[2021-07-21 19:16] LABS: FREE T4 (FREE THYROXINE) 1.22 ng/dL (0.58-1.64)
== END 2021-07-21 15:14 | disposition home or self-care (01) ==
LOC: LAB.N 15:13
PROVIDERS: ATTEND Internal Medicine
DX: I48.0 Paroxysmal atrial fibrillation (principal); E79.0 Hyperuricemia without signs of inflammatory arthritis and tophaceous disease
CPT/HCPCS: 36415; 80048; 83735; 84439; 84443; 84550; 85025

== ENCOUNTER 2022-06-24 08:16 | Outpatient (CLI) | payer MEDICARE, OTHER ==
[2022-06-24 11:42] LABS: BASOPHILS # (AUTO) 0.1 10^3/uL (0.0-0.1); BASOPHILS % (AUTO) 1.5 %; EOSINOPHILS # (AUTO) 0.2 10^3/uL (0.0-0.7); EOSINOPHILS % (AUTO) 4.1 %; HCT - HEMATOCRIT 41.7 % (42.0-52.0); HGB - HEMOGLOBIN 13.6 g/dL (14.0-18.0); LYMPHOCYTES # (AUTO) 1.5 10^3/uL (1.5-3.5); LYMPHOCYTES % (AUTO) 25.1 %; MEAN CORPUSCULAR HEMOGLOBIN 28.6 pg (27.0-31.0); MEAN CORPUSCULAR HGB CONC 32.6 g/dL (32.0-36.0); MEAN CORPUSCULAR VOLUME 87.6 fL (80.0-94.0); MEAN PLATELET VOLUME 9.1 fL (7.4-11.4); MONOCYTES # (AUTO) 0.7 10^3/uL (0.0-1.0); MONOCYTES % (AUTO) 11.6 %; NEUTROPHILS # (AUTO) 3.4 10^3/uL (1.5-6.6); NEUTROPHILS % (AUTO) 57.5 %; PLT - PLATELET COUNT 221 10^3/uL (130-450); RED BLOOD COUNT 4.76 10^6/uL (4.70-6.10); RED CELL DISTRIBUTION WIDTH 13.2 % (12.0-15.0); WHITE BLOOD COUNT 5.9 x10^3/uL (4.8-10.8)
[2022-06-24 12:18] LABS: THYROID STIMULATING HORMONE 0.62 uIU/mL (0.34-5.60)
[2022-06-24 12:33] LABS: ESTIMATED AVERAGE GLUCOSE 137 mg/dL (70-100); HEMOGLOBIN A1c% 6.4 % (4.27-6.07)
[2022-06-24 13:51] LABS: ALBUMIN 3.8 g/dL (3.2-5.5); ALBUMIN/GLOBULIN RATIO 1.3 (1.0-2.2); ALKALINE PHOSPHATASE 72 IU/L (42-121); ALT ALANINE AMINOTRANSFERASE 19 IU/L (10-60); AST ASPARTATE AMINOTRANSFERASE 20 IU/L (10-42); BILIRUBIN,TOTAL 0.3 mg/dL (0.2-1.0); BUN - BLOOD UREA NITROGEN 28 mg/dL (6-20); CALCIUM 9.2 mg/dL (8.5-10.3); CARBON DIOXIDE - CO2 27 mmol/L (21-32); CHLORIDE 105 mmol/L (101-111); CHOL/HDL RATIO 2.8 (<5.0); CHOLESTEROL 124 mg/dL; CREATININE 1.3 mg/dL (0.6-1.2); GFR - MDRD 54 (>89); GLUCOSE 126 mg/dL (70-100); HDL CHOLESTEROL 44 mg/dL; LDL CHOLESTEROL,CALCULATED 55 mg/dL; LDL/HDL RATIO 1.3 (<3.6); POTASSIUM 3.9 mmol/L (3.5-5.0); SODIUM 135 mmol/L (135-145); TOTAL PROTEIN 6.8 g/dL (6.7-8.2); TRIGLYCERIDES 127 mg/dL; URIC ACID 5.4 mg/dL (2.6-7.2); VLDL CHOLESTEROL 25 mg/dL
[2022-06-24 14:00] LABS: CREATININE,URINE 126.8 mg/dL; MICROALBUM/CREATININE RATIO,UR 3.2 ug/mg (<30.0); MICROALBUMIN,URINE 0.4 mg/dL (0-300.0)
== END 2022-06-24 08:17 | disposition home or self-care (01) ==
LOC: LAB.N 08:16
PROVIDERS: ATTEND Internal Medicine
DX: I10 Essential (primary) hypertension (principal); E78.5 Hyperlipidemia, unspecified; E11.29 Type 2 diabetes mellitus with other diabetic kidney complication; N40.1 Benign prostatic hyperplasia with lower urinary tract symptoms; E03.9 Hypothyroidism, unspecified; E79.0 Hyperuricemia without signs of inflammatory arthritis and tophaceous disease
CPT/HCPCS: 36415; 80053; 80061; 82043; 82570; 83036; 83721; 84153; 84443; 84550; 85025

== ENCOUNTER 2022-11-26 09:10 | Outpatient (CLI) | payer MEDICARE, OTHER ==
[2022-11-26 12:29] LABS: CALCIUM 9.7 mg/dL (8.5-10.3); CREATININE 1.7 mg/dL (0.6-1.3); POTASSIUM 3.8 mmol/L (3.5-4.5)
[2022-11-26 12:37] LABS: ESTIMATED AVERAGE GLUCOSE 131 mg/dL (70-100); HEMOGLOBIN A1c% 6.2 % (4.27-6.07)
== END 2022-11-26 09:11 | disposition home or self-care (01) ==
LOC: LAB.N 09:10
PROVIDERS: ATTEND Internal Medicine
DX: E11.22 Type 2 diabetes mellitus with diabetic chronic kidney disease (principal)
CPT/HCPCS: 36415; 80048; 83036

== ENCOUNTER 2022-11-27 08:00 | Outpatient (CLI) | payer MEDICARE, OTHER | END 2022-11-27 23:59 | disposition home or self-care (01) | LOC: LAB.WCP 08:00 | PROVIDERS: ATTEND Registered Nurse | DX: R05.1 Acute cough (principal); Z20.822 Contact with and (suspected) exposure to COVID-19 ==

== ENCOUNTER 2023-03-30 08:18 | Outpatient (CLI) | payer MEDICARE, OTHER ==
[2023-03-30 12:08] LABS: BASOPHILS # (AUTO) 0.1 10^3/uL (0.0-0.1); BASOPHILS % (AUTO) 0.9 %; EOSINOPHILS # (AUTO) 0.2 10^3/uL (0.0-0.7); EOSINOPHILS % (AUTO) 1.8 %; HCT - HEMATOCRIT 40.8 % (42.0-52.0); HGB - HEMOGLOBIN 13.4 g/dL (14.0-18.0); LYMPHOCYTES # (AUTO) 1.3 10^3/uL (1.5-3.5); LYMPHOCYTES % (AUTO) 15.6 %; MEAN CORPUSCULAR HEMOGLOBIN 28.6 pg (27.0-31.0); MEAN CORPUSCULAR HGB CONC 32.8 g/dL (32.0-36.0); MEAN PLATELET VOLUME 8.9 fL (7.4-11.4); MONOCYTES # (AUTO) 0.9 10^3/uL (0.0-1.0); MONOCYTES % (AUTO) 10.5 %; NEUTROPHILS # (AUTO) 5.8 10^3/uL (1.5-6.6); NEUTROPHILS % (AUTO) 71.1 %; PLT - PLATELET COUNT 194 10^3/uL (130-450); RED BLOOD COUNT 4.69 10^6/uL (4.70-6.10); RED CELL DISTRIBUTION WIDTH 13.2 % (12.0-15.0); WHITE BLOOD COUNT 8.2 x10^3/uL (4.8-10.8)
[2023-03-30 12:40] LABS: ESTIMATED AVERAGE GLUCOSE 143 mg/dL (70-100); HEMOGLOBIN A1c% 6.6 % (4.27-6.07)
[2023-03-30 12:50] LABS: THYROID STIMULATING HORMONE 0.53 uIU/mL (0.34-5.60)
[2023-03-30 12:53] LABS: ALBUMIN 4.2 g/dL (3.2-5.5); ALBUMIN/GLOBULIN RATIO 1.8 (1.0-2.2); ALKALINE PHOSPHATASE 61 IU/L (42-121); ALT ALANINE AMINOTRANSFERASE 15 IU/L (10-60); AST ASPARTATE AMINOTRANSFERASE 17 IU/L (10-42); BILIRUBIN,TOTAL 0.6 mg/dL (0.2-1.0); BUN - BLOOD UREA NITROGEN 23 mg/dL (6-20); CALCIUM 9.2 mg/dL (8.5-10.3); CARBON DIOXIDE - CO2 26 mmol/L (21-32); CHLORIDE 106 mmol/L (101-111); CHOL/HDL RATIO 2.2 (<5.0); CHOLESTEROL 101 mg/dL; CREATININE 1.3 mg/dL (0.6-1.3); GFR - MDRD 54 (>89); GLUCOSE 112 mg/dL (74-104); HDL CHOLESTEROL 46 mg/dL; LDL CHOLESTEROL,CALCULATED 30 mg/dL; LDL/HDL RATIO 0.7 (<3.6); POTASSIUM 4.1 mmol/L (3.5-4.5); SODIUM 138 mmol/L (135-145); TOTAL PROTEIN 6.6 g/dL (6.4-8.9); TRIGLYCERIDES 123 mg/dL (48-352); URIC ACID 5.1 mg/dL (4.4-7.6); VLDL CHOLESTEROL 25 mg/dL
[2023-03-30 12:56] LABS: CREATININE,URINE 169.7 mg/dL; MICROALBUM/CREATININE RATIO,UR 7.1 ug/mg (<30.0); MICROALBUMIN,URINE 1.2 mg/dL
== END 2023-03-30 08:19 | disposition home or self-care (01) ==
LOC: LAB.N 08:18
PROVIDERS: ATTEND Internal Medicine
DX: I12.9 Hypertensive chronic kidney disease with stage 1 through stage 4 chronic kidney disease, or unspecified chronic kidney disease (principal); E11.22 Type 2 diabetes mellitus with diabetic chronic kidney disease; E78.5 Hyperlipidemia, unspecified; N40.1 Benign prostatic hyperplasia with lower urinary tract symptoms; I48.0 Paroxysmal atrial fibrillation; E79.0 Hyperuricemia without signs of inflammatory arthritis and tophaceous disease
CPT/HCPCS: 36415; 80053; 80061; 82043; 82570; 83036; 83721; 84153; 84443; 84550; 85025

== ENCOUNTER 2023-07-23 15:15 | Outpatient (CLI) | payer MEDICARE, OTHER ==
[2023-07-23 17:53] LABS: BASOPHILS # (AUTO) 0.1 10^3/uL (0.0-0.1); BASOPHILS % (AUTO) 1.3 %; EOSINOPHILS # (AUTO) 0.2 10^3/uL (0.0-0.7); EOSINOPHILS % (AUTO) 3.7 %; HCT - HEMATOCRIT 36.9 % (42.0-52.0); HGB - HEMOGLOBIN 12.1 g/dL (14.0-18.0); LYMPHOCYTES # (AUTO) 1.3 10^3/uL (1.5-3.5); LYMPHOCYTES % (AUTO) 20.1 %; MEAN CORPUSCULAR HEMOGLOBIN 28.9 pg (27.0-31.0); MEAN CORPUSCULAR HGB CONC 32.8 g/dL (32.0-36.0); MEAN CORPUSCULAR VOLUME 88.3 fL (80.0-94.0); MEAN PLATELET VOLUME 9.3 fL (7.4-11.4); MONOCYTES % (AUTO) 16.3 %; NEUTROPHILS # (AUTO) 3.6 10^3/uL (1.5-6.6); NEUTROPHILS % (AUTO) 57.8 %; PLT - PLATELET COUNT 220 10^3/uL (130-450); RED BLOOD COUNT 4.18 10^6/uL (4.70-6.10); WHITE BLOOD COUNT 6.2 x10^3/uL (4.8-10.8)
[2023-07-23 18:16] LABS: CALCIUM 9.2 mg/dL (8.5-10.3); CREATININE 1.7 mg/dL (0.6-1.3); POTASSIUM 4.1 mmol/L (3.5-4.5)
--- NOTE | 2023-07-23 22:46 | XRAY Report ---
Chest 2V HISTORY: ACUTE COUGH COMPARISON: 07/21/2021. 08/29/2020 TECHNIQUE: 2 views of the chest are submitted for interpretation. FINDINGS/IMPRESSION: No pleural effusion or pneumothorax. No pulmonary edema. 3.5 cm area of airspace opacity in the right lower lung, new from 08/29/2020, which may represent focal consolidation versus summation artifact. U nderlying mass cannot be excluded. Recommend further evaluation with CT chest. Stable cardiomegaly. Reviewed by: Janae Miller MD on 07/23/2023 10:44 PM PDT Approved by: Janae Miller MD on 07/23/2023 10:44 PM PDT Station ID: [id number]
== END 2023-07-23 15:30 | disposition home or self-care (01) ==
LOC: DI.N 15:15
PROVIDERS: ATTEND Physician Assistant
DX: R05.1 Acute cough (principal); I51.7 Cardiomegaly
CPT/HCPCS: 36415; 80048; 85025

== ENCOUNTER 2023-08-06 09:18 | Outpatient (CLI) | payer MEDICARE, OTHER ==
[2023-08-06] MEDS ORDERED: iohexoL-300 100 ML VIAL ONE (09:19)
[2023-08-06] MEDS: iohexoL-300 100 ML VIAL IVP ONE (09:49)
--- NOTE | 2023-08-06 12:15 | CT Report ---
PROCEDURE: Chest W INDICATIONS: PULMONARY MASS CONTRAST: 100ml omni 300 TECHNIQUE: After the administration of intravenous contrast, a CT scan of the chest was performed. Images were recorded and evaluated at appropriate window settings. Reformats: axial MIP of the chest, coronal and sagittal. For radiation dose reduction, the following was used: automated exposure control, adjustme nt of mA and/or kV according to patient size. COMPARISON: Chest x-ray 07/23/2023 FINDINGS: Image quality: Diagnostic. Chest wall and lower neck: Several thyroid nodules of various sizes. No breast mass. No axillary or s upraclavicular adenopathy by size. Lungs and pleura: No dominant right lung mass as suggested by x-ray. There is minimal consolidation i n the lingula along the major fissure, and 2 patchy subpleural nodules laterally at the left lung bas e, measuring 0.8 and 0.9 cm. No other significant airspace disease or groundglass opacity. Mild bilat eral lower lung bronchial wall thickening. Central airways are patent. No pleural effusions. No pneu mothorax. Mediastinum: Heart size is mildly enlarged with mild coronary calcification. No pericardial effusion. No large vessel abnormality. No mediastinal adenopathy by size criteria. Mild circumferential esoph ageal wall thickening, particularly in the lower esophagus. No focal thickening. Bones: No aggressive osseous abnormality. Degenerative bridging osteophytosis in the lower thoracic s pine. Upper Abdomen: Mild hepatic steatosis. Visible portions of the upper abdomen are otherwise normal. IMPRESSION: No right lung mass. This may have been summation artifact or small airspace disease, now resolved. Minor lingular consolidation and 2 left lower lobe patchy nodules. These are likely postinfectious or inflammatory. Follow-up chest CT in 6 months is recommended to begin to document two-year stability. Mild bronchial wall thickening can be seen in acute or chronic bronchitis. Multiple thyroid nodules. Recommend evaluation with thyroid ultrasound. Reviewed by: Adriana Myers MD on 08/06/2023 12:14 PM PDT Approved by: Adriana Myers MD on 08/06/2023 12:14 PM PDT Station ID: [id number]
== END 2023-08-06 09:19 | disposition home or self-care (01) ==
LOC: DI 09:18
PROVIDERS: ATTEND Physician Assistant
DX: R91.8 Other nonspecific abnormal finding of lung field (principal)
CPT/HCPCS: 71260; Q9967

== ENCOUNTER 2023-09-03 10:10 | Emergency (ER) | payer MEDICARE, OTHER ==
[2023-09-03 11:31] LABS: B. PARAPERTUSSIS- RESP PCR PAN NOT DETECTED; B. PERTUSSIS- RESP PCR PANEL NOT DETECTED; C. PNEUMONIAE- RESP PCR PANEL NOT DETECTED; CORONAVIRUS 229E-RESP PCR NOT DETECTED; CORONAVIRUS HKU1-RESP PCR NOT DETECTED; CORONAVIRUS NL63-RESP PCR NOT DETECTED; CORONAVIRUS OC43-RESP PCR NOT DETECTED; HUMAN METAPNEUMOVIRUS NOT DETECTED; INFLUENZA A- RESP PCR PANEL NOT DETECTED; INFLUENZA B - RESP PCR PANEL NOT DETECTED; M. PNEUMONIAE- RESP PCR PANEL NOT DETECTED; PARAINFLUENZA VIRUS 1 NOT DETECTED; PARAINFLUENZA VIRUS 2 NOT DETECTED; PARAINFLUENZA VIRUS 3 NOT DETECTED; PARAINFLUENZA VIRUS 4 NOT DETECTED; RHINOVIRUS/ENTEROVIRUS NOT DETECTED; RSV- RESP PCR PANEL NOT DETECTED; SARS-CoV-2 -RESP PCR PANEL NOT DETECTED
--- NOTE | 2023-09-03 11:35 | ED Physician Documentation ---
PD HPI URI - Stated complaint Stated Complaint: SOA,SORE THROAT - Chief complaint Chief Complaint: Resp - Additional information Additional information: 78-year-old male with history of hypertension, hypercholesterolemia, hypothyroidism, type 2 diabetes, renal insufficiency presents emergency department for increased shortness of breath. Patient says that he has been having upper respiratory infection symptoms now for about 2 weeks he went to the walk-in clinic where he was given antibiotics but he is unsure what for. Since then he says that he still feels like anytime he does any exertional activity he is having increased shortness of breath and tachycardia. He says that the walk- in clinic was recommending a CT scan but he is again unsure why or what they found. He says that with minimally exertional activity his heart starts to race and he feels like he is having a really hard time catching his breath. PD PAST MEDICAL HISTORY - Past Medical History Cardiovascular: Hypertension, High cholesterol Respiratory: None Endocrine/Autoimmune: Type 2 diabetes, HyPOthyroidism GI: None : Renal insuffiency HEENT: Other Psych: None Musculoskeletal: Gout Derm: None - Past Surgical History General: Colonoscopy HEENT: Other - Present Medications Home Medications: Ambulatory Orders Medication Instructions Recorded Confirmed Levothyroxine Sodium [Synthroid] 15 mcg PO DAILY 03/21/18 06/20/21 Losartan [Cozaar] 50 mg PO DAILY 03/21/18 06/20/21 Metoprolol Succinate [Toprol Xl] 100 mg PO DAILY 03/21/18 06/20/21 Simvastatin 40 mg PO DAILY 03/21/18 06/20/21 allopurinoL [Allopurinol] 50 mg PO DAILY 03/21/18 06/20/21 Aspirin 81 mg PO DAILY 06/23/18 06/20/21 Tamsulosin [Flomax] 0.4 mg PO DAILY 07/18/20 06/20/21 metFORMIN [Glucophage] 500 mg PO BID 07/18/20 06/20/21 Furosemide [Lasix] 20 mg PO DAILY 3 Days #3 tablet 09/03/23 - Allergies Allergies/Adverse Reactions: Allergies Allergy/AdvReac Type Severity Reaction Status Date / Time No Known Drug Allergies Allergy Verified 09/03/23 10:24 - Social History Does the pt smoke?: No Smoking Status: Never smoker Does the pt drink ETOH?: No Does the pt have substance abuse?: No - Immunizations Immunizations are current?: Yes PD ED PE NORMAL - Vitals Vital signs reviewed: Yes - General General: Alert and oriented X 3, No acute distress, Well developed/nourished - HEENT HEENT: Atraumatic, PERRL, EOMI - Neck Neck: Supple, no meningeal sign, No bony TTP - Cardiac Cardiac: RRR, No murmur - Respiratory Respiratory: No respiratory distress, Clear bilaterally - Abdomen Abdomen: Normal bowel sounds, Soft, Non tender, Non distended, No organomegaly - Back Back: No CVA TTP - Derm Derm: Normal color, Warm and dry, No rash - Extremities Extremities: No edema, No calf tenderness / cord Results - Vitals Vitals: Vital Signs - 24 hr 09/03/23 09/03/23 10:20 14:23 Temperature 36.5 C Heart Rate 101 H 73 Respiratory 16 18 Rate Blood Pressure 135/84 H 119/83 H O2 Saturation 98 100 Oxygen O2 Source Room air - Labs Labs: Laboratory Tests 09/03/23 09/03/23 09/03/23 10:25 12:23 12:23 WBC 6.4 RBC 4.36 L Hgb 12.2 L Hct 38.6 L MCV 88.5 MCH 28.0 MCHC 31.6 L RDW 13.7 Plt Count 170 MPV 9.2 Neut # (Auto) 4.4 Lymph # (Auto) 1.1 L [place] # (Auto) 0.7 Eos # (Auto) 0.1 Baso # (Auto) 0.1 Absolute Nucleated RBC 0.00 Nucleated RBC % 0.0 Sodium 138 Potassium 4.1 Chloride 106 Carbon Dioxide 26 Anion Gap 6.0 BUN 25 H Creatinine 1.4 H Estimated GFR (MDRD) 49 L Glucose 111 H Calcium 9.3 Magnesium 2.1 Total Bilirubin 1.0 AST 24 ALT 27 Alkaline Phosphatase 68 Total Protein 6.5 Albumin 4.0 Globulin 2.5 Albumin/Globulin Ratio 1.6 Lipase 16 Nasal Adenovirus (PCR) NOT DETECTED Nasal B. parapertussis DNA (PCR) NOT DETECTED Nasal Coronavir 229E PCR NOT DETECTED Nasal Coronavir HKU1 PCR NOT DETECTED Nasal Coronavir NL63 PCR NOT DETECTED Nasal Coronavir OC43 PCR NOT DETECTED Nasal Enterovir/Rhinovir PCR NOT DETECTED Nasal Influenza B PCR NOT DETECTED Nasal Influenza A PCR NOT DETECTED Nasal Parainfluen 1 PCR NOT DETECTED Nasal Parainfluen 2 PCR NOT DETECTED Nasal Parainfluen 3 PCR NOT DETECTED Nasal Parainfluen 4 PCR NOT DETECTED Nasal RSV (PCR) NOT DETECTED Nasal B.pertussis DNA PCR NOT DETECTED Nasal C.pneumoniae (PCR) NOT DETECTED [place] Human Metapneumo PCR NOT DETECTED Nasal M.pneumoniae (PCR) NOT DETECTED Nasal SARS-CoV-2 (PCR) NOT DETECTED - Rads (name of study) Angio chest with Relevant Findings:: Final report received, EMP independent interpretation of test, Other (No pulmonary embolism. Mild to moderate pulmonary edema with trace pleural effusions) PD Medical Decision Making - ED course ED course: 78-year-old male presents emergency department for your shortness of breath. Respiratory panel was negative given patient's Wells criteria for scoring 6 with a moderate risk of PE I went ahead with a CT chest angio. CT chest angio revealed pulmonary edema no pulmonary embolism with trace pleural effusions. He was given a one-time dose of Lasix here in the emergency department and an additional 3 days of furosemide to help with any sort of pulmonary edema. He is told to follow-up with his primary care provider to have his labs checked and given very strict ER return precautions. The rest of his labs are fairly unremarkable no leukocytosis mild anemia hemoglobin 12.2 creatinine 1.4, GFR 49 BUN 25. Departure - Departure Disposition: 01 Home, Self Care Clinical Impression: Pulmonary edema Instructions: ED Viral Syndrome Prescriptions: Furosemide [Lasix] 20 mg PO DAILY 3 Days #3 tablet Comments: Thank you for trusting us with your care. We have completed a CT of your chest for further evaluation and we are seeing some mild pulmonary edema for this we are giving you a very short course of Lasix this will make you urinate a lot will help get a extra fluid off of your lungs. We have given you a first pill here in the emergency department you will take the next pill once a day for the next 3 days please follow-up with your primary care provider to have your labs reevaluated and let them know about today's ER visit and discuss today's findings. Below you will see the CT results for your reading. Please come back to the ER if you are having any worsening symptoms, chest pain, worsening shortness of breath, or any other concerning symptoms. Wishing you a speedy recovery. INDICATIONS: r/o PE CONTRAST: 80ml omni 300 TECHNIQUE: After the administration of intravenous contrast, 2 mm axial images were acq uired from the pulmonary apices to the posterior costophrenic angles during the arterial phase. In addition, 1 mm lung kernel and 5 mm soft tissue kernel reconstructions were performed. 3-dimensional coronal oblique maximum intensity projection (MIP) reformats, 8 mm axial MIP, and 5 mm coronal and sagittal MPR reformats were then performed through the thorax. For radiation dose reduction, the fo llowing was used: automated exposure control, adjustment of mA and/or kV according to patient size. COMPARISON: 08/06/2023 FINDINGS: Image quality: Excellent. Large vessels: No filling defects within the opacified pulmonary arteries, accounting for motion and contrast timing. No evidence of acute aortic syndrome or aortic aneurysm. Lungs and pleura: No consolidation. Small right and trace left pleural effusions. No suspicious pulmonary nodules which require follow up. Bronchial thickening with smooth interstitial thickening. Mediastinum: Heart size is enlarged, with moderate LAD calcifications. No pericardial effusion. No large vessel abnormality. No mediastinal adenopathy by size criteria. Chest wall and lower neck: Thyroid is unremarkable. No axillary or supraclavicular adenopathy by size. Mild gynecomastia. Bones: No aggressive osseous abnormality. Upper Abdomen: Reflux of contrast into the IVC. IMPRESSION: No pulmonary embolus. Mild to moderate pulmonary edema with small right and trace left pleural effusions. Reflux of contrast into the IVC, indicating elevated right heart pressures. Reviewed by: Froilan Alfaro MD on 09/03/2023 1:51 PM PDT Approved by: Froilan Alfaro MD on 09/03/2023 1:51 PM PDT Station ID: [id number] Report Electronically Signed by Froilan Alfaro MD 09/03/23 1348 09/03/23 1351 cc: Jarek Marrufo MD-[place]; Kandi Crawford DNP Forms: PCP List Discharge Date/Time: 09/03/23 14:23
[2023-09-03 12:36] LABS: BASOPHILS # (AUTO) 0.1 10^3/uL (0.0-0.1); BASOPHILS % (AUTO) 1.1 %; EOSINOPHILS # (AUTO) 0.1 10^3/uL (0.0-0.7); EOSINOPHILS % (AUTO) 1.7 %; HCT - HEMATOCRIT 38.6 % (42.0-52.0); HGB - HEMOGLOBIN 12.2 g/dL (14.0-18.0); LYMPHOCYTES # (AUTO) 1.1 10^3/uL (1.5-3.5); LYMPHOCYTES % (AUTO) 17.2 %; MEAN CORPUSCULAR HGB CONC 31.6 g/dL (32.0-36.0); MEAN CORPUSCULAR VOLUME 88.5 fL (80.0-94.0); MEAN PLATELET VOLUME 9.2 fL (7.4-11.4); MONOCYTES # (AUTO) 0.7 10^3/uL (0.0-1.0); MONOCYTES % (AUTO) 10.8 %; NEUTROPHILS # (AUTO) 4.4 10^3/uL (1.5-6.6); PLT - PLATELET COUNT 170 10^3/uL (130-450); RED BLOOD COUNT 4.36 10^6/uL (4.70-6.10); RED CELL DISTRIBUTION WIDTH 13.7 % (12.0-15.0); WHITE BLOOD COUNT 6.4 x10^3/uL (4.8-10.8)
[2023-09-03 12:44] LABS: MAGNESIUM 2.1 mg/dL (1.7-2.3)
[2023-09-03 12:50] LABS: ALBUMIN/GLOBULIN RATIO 1.6 (1.0-2.2); CALCIUM 9.3 mg/dL (8.5-10.3); CREATININE 1.4 mg/dL (0.6-1.3); POTASSIUM 4.1 mmol/L (3.5-4.5); TOTAL PROTEIN 6.5 g/dL (6.4-8.9)
[2023-09-03] MEDS ORDERED: iohexoL-300 100 ML VIAL ONE (13:14)
--- NOTE | 2023-09-03 13:52 | CT Report ---
PROCEDURE: Angio Chest INDICATIONS: r/o PE CONTRAST: 80ml omni 300 TECHNIQUE: After the administration of intravenous contrast, 2 mm axial images were acquired from the pulmonary apices to the posterior costophrenic angles during the arterial phase. In addition, 1 mm lung kernel and 5 mm soft tissue kernel reconstructions were performed. 3-dimensional coronal oblique maximum int ensity projection (MIP) reformats, 8 mm axial MIP, and 5 mm coronal and sagittal MPR reformats were t hen performed through the thorax. For radiation dose reduction, the following was used: automated exp osure control, adjustment of mA and/or kV according to patient size. COMPARISON: 08/06/2023 FINDINGS: Image quality: Excellent. Large vessels: No filling defects within the opacified pulmonary arteries, accounting for motion and contrast timing. No evidence of acute aortic syndrome or aortic aneurysm. Lungs and pleura: No consolidation. Small right and trace left pleural effusions. No suspicious pulmo nary nodules which require follow up. Bronchial thickening with smooth interstitial thickening. Mediastinum: Heart size is enlarged, with moderate LAD calcifications. No pericardial effusion. No la rge vessel abnormality. No mediastinal adenopathy by size criteria. Chest wall and lower neck: Thyroid is unremarkable. No axillary or supraclavicular adenopathy by size . Mild gynecomastia. Bones: No aggressive osseous abnormality. Upper Abdomen: Reflux of contrast into the IVC. IMPRESSION: No pulmonary embolus. Mild to moderate pulmonary edema with small right and trace left pleural effusions. Reflux of contrast into the IVC, indicating elevated right heart pressures. Reviewed by: Froilan Alfaro MD on 09/03/2023 1:51 PM PDT Approved by: Froilan Alfaro MD on 09/03/2023 1:51 PM PDT Station ID: [id number]
[2023-09-03] MEDS: FUROSEMIDE 20 MG TABLET PO STA (14:10)
[2023-09-03 14:26] VITALS: BP 119/83; O2SAT 100
[2023-09-03] MEDS: iohexoL-300 100 ML VIAL IVP ONE (19:07)
== END 2023-09-03 14:23 | disposition home or self-care (01) ==
LOC: ED 10:10
DX: J81.1 Chronic pulmonary edema (principal); I10 Essential (primary) hypertension; E78.00 Pure hypercholesterolemia, unspecified; E03.9 Hypothyroidism, unspecified; E11.9 Type 2 diabetes mellitus without complications; N28.9 Disorder of kidney and ureter, unspecified; M10.9 Gout, unspecified; Z79.84 Long term (current) use of oral hypoglycemic drugs; Z79.899 Other long term (current) drug therapy
CPT/HCPCS: 36415; 71275; 80053; 83690; 83735; 85025; 87633; 93005; 99284; A9270; Q9967

== ENCOUNTER 2023-09-09 09:14 | Outpatient (CLI) | payer MEDICARE, OTHER ==
[2023-09-09 12:00] LABS: BASOPHILS # (AUTO) 0.1 10^3/uL (0.0-0.1); BASOPHILS % (AUTO) 1.4 %; EOSINOPHILS # (AUTO) 0.2 10^3/uL (0.0-0.7); EOSINOPHILS % (AUTO) 3.8 %; HCT - HEMATOCRIT 36.8 % (42.0-52.0); HGB - HEMOGLOBIN 11.5 g/dL (14.0-18.0); LYMPHOCYTES % (AUTO) 18.9 %; MEAN CORPUSCULAR HGB CONC 31.3 g/dL (32.0-36.0); MEAN CORPUSCULAR VOLUME 89.8 fL (80.0-94.0); MEAN PLATELET VOLUME 9.4 fL (7.4-11.4); MONOCYTES # (AUTO) 0.6 10^3/uL (0.0-1.0); MONOCYTES % (AUTO) 11.3 %; NEUTROPHILS # (AUTO) 3.2 10^3/uL (1.5-6.6); NEUTROPHILS % (AUTO) 64.4 %; PLT - PLATELET COUNT 168 10^3/uL (130-450); RED CELL DISTRIBUTION WIDTH 13.8 % (12.0-15.0)
[2023-09-09 12:10] LABS: MICROALBUM/CREATININE RATIO,UR 6.4 ug/mg (<30.0); MICROALBUMIN,URINE 0.9 mg/dL
[2023-09-09 12:24] LABS: ESTIMATED AVERAGE GLUCOSE 140 mg/dL (70-100); HEMOGLOBIN A1c% 6.5 % (4.27-6.07)
[2023-09-09 12:27] LABS: ALBUMIN 3.9 g/dL (3.2-5.5); ALBUMIN/GLOBULIN RATIO 1.9 (1.0-2.2); ALKALINE PHOSPHATASE 62 IU/L (42-121); ALT ALANINE AMINOTRANSFERASE 19 IU/L (10-60); AST ASPARTATE AMINOTRANSFERASE 18 IU/L (10-42); BUN - BLOOD UREA NITROGEN 22 mg/dL (6-20); CALCIUM 9.4 mg/dL (8.5-10.3); CARBON DIOXIDE - CO2 29 mmol/L (21-32); CHLORIDE 106 mmol/L (101-111); CHOL/HDL RATIO 1.8 (<5.0); CHOLESTEROL 86 mg/dL; CREATININE 1.4 mg/dL (0.6-1.3); GFR - MDRD 49 (>89); GLUCOSE 111 mg/dL (74-104); HDL CHOLESTEROL 49 mg/dL; LDL CHOLESTEROL,CALCULATED 26 mg/dL; LDL/HDL RATIO 0.5 (<3.6); POTASSIUM 4.3 mmol/L (3.5-4.5); SODIUM 138 mmol/L (135-145); TRIGLYCERIDES 54 mg/dL (48-352); VLDL CHOLESTEROL 11 mg/dL
[2023-09-09 12:29] LABS: THYROID STIMULATING HORMONE 0.63 uIU/mL (0.34-5.60)
== END 2023-09-09 09:15 | disposition home or self-care (01) ==
LOC: LAB.N 09:14
PROVIDERS: ATTEND Internal Medicine
DX: E78.5 Hyperlipidemia, unspecified (principal); E11.22 Type 2 diabetes mellitus with diabetic chronic kidney disease; I48.0 Paroxysmal atrial fibrillation
CPT/HCPCS: 36415; 80053; 80061; 82043; 82570; 83036; 83721; 84443; 85025

== ENCOUNTER 2023-09-13 09:28 | Inpatient (IN) | payer MEDICARE, OTHER ==
--- NOTE | 2023-09-13 10:41 | ED Physician Documentation ---
PD HPI DYSPNEA - Stated complaint Stated Complaint: SOA,COUGH,FATIGUE - Chief complaint Chief Complaint: Resp - History obtained from History obtained from: Patient - History of Present Illness Timing - onset: How many days ago (-) Timing - duration: Days (-12) Timing - details: Gradual onset, Still present Improved by: Rest Worsened by: Exertion, Laying flat, Coughing Associated symptoms: Cough. No: Fever Recently seen: Emergency Dept (seen with this and had negative CXR and adequate sats. Has worsened since that.) PD PAST MEDICAL HISTORY - Past Medical History Past Medical History: Yes Cardiovascular: Hypertension, High cholesterol Respiratory: None Neuro: None Endocrine/Autoimmune: Type 2 diabetes, HyPOthyroidism GI: None : Renal insuffiency HEENT: Other Psych: None Musculoskeletal: Gout Derm: None - Past Surgical History Past Surgical History: Yes General: Colonoscopy HEENT: Other - Present Medications Home Medications: Ambulatory Orders Medication Instructions Recorded Confirmed Levothyroxine Sodium [Synthroid] 50 mcg PO DAILY 03/21/18 09/13/23 allopurinoL [Allopurinol] 200 mg PO DAILY 03/21/18 09/13/23 Tamsulosin [Flomax] 0.8 mg PO DAILY 07/18/20 09/13/23 metFORMIN [Glucophage] 500 mg PO BID 07/18/20 09/13/23 Acetaminophen [Tylenol] 500 mg PO Q6HR PRN 09/13/23 09/13/23 Albuterol Sulf [Ventolin Hfa 1 - 2 puffs INH Q4HR PRN 09/13/23 09/13/23 Inhaler] Amlodipine Besylate [Norvasc] 10 mg PO DAILY 09/13/23 09/13/23 Finasteride [Proscar] 5 mg PO DAILY 09/13/23 09/13/23 Losartan Potassium 100 mg PO DAILY 09/13/23 09/13/23 Metoprolol Succinate [Toprol Xl] 50 mg PO DAILY 09/13/23 09/13/23 Rivaroxaban [Xarelto] 20 mg ORAL DAILY 09/13/23 09/13/23 Rosuvastatin Calcium 20 mg PO Q48H 09/13/23 09/13/23 - Allergies Allergies/Adverse Reactions: Allergies Allergy/AdvReac Type Severity Reaction Status Date / Time No Known Drug Allergies Allergy Verified 09/13/23 09:33 - Social History Does the pt smoke?: No Smoking Status: Former smoker Does the pt drink ETOH?: No Does the pt have substance abuse?: No - Immunizations Immunizations are current?: Yes - POLST Patient has POLST: No PD ED PE NORMAL - Vitals Vital signs reviewed: Yes - General General: Alert and oriented X 3, Well developed/nourished, Other (tachypnea with exp wheezing noted diffusely. Some coarse sounds right base. ) - Neck Neck: Supple, no meningeal sign, No adenopathy Results - Vitals Vitals: Oxygen O2 Source Nasal cannula Oxygen Flow Rate 2 - Labs Labs: Laboratory Tests 09/13/23 09/13/23 09/13/23 10:50 10:50 10:50 WBC 5.0 RBC 4.34 L Hgb 11.9 L Hct 37.5 L MCV 86.4 MCH 27.4 MCHC 31.7 L RDW 13.5 Plt Count 159 MPV 8.7 Neut # (Auto) 3.8 Lymph # (Auto) 0.5 L [place] # (Auto) 0.7 Eos # (Auto) 0.0 Baso # (Auto) 0.0 Absolute Nucleated RBC 0.00 Nucleated RBC % 0.0 Sodium 129 L Potassium 3.8 Chloride 98 L Carbon Dioxide 25 Anion Gap 6.0 BUN 24 H Creatinine 1.3 Estimated GFR (MDRD) 53 L Glucose 132 H Lactic Acid Calcium 9.3 Magnesium 1.9 Total Bilirubin 1.0 AST 27 ALT 20 Alkaline Phosphatase 64 B-Natriuretic Peptide Cancelled 403 H Total Protein 6.3 L Albumin 4.1 Globulin 2.2 Albumin/Globulin Ratio 1.9 Lipase 18 Nasal Adenovirus (PCR) Nasal B. parapertussis DNA (PCR) Nasal Coronavir 229E PCR Nasal Coronavir HKU1 PCR Nasal Coronavir NL63 PCR Nasal Coronavir OC43 PCR Nasal Enterovir/Rhinovir PCR Nasal Influenza B PCR Nasal Influenza A PCR Nasal Parainfluen 1 PCR Nasal Parainfluen 2 PCR Nasal Parainfluen 3 PCR Nasal Parainfluen 4 PCR Nasal RSV (PCR) Nasal B.pertussis DNA PCR Nasal C.pneumoniae (PCR) [place] Human Metapneumo PCR Nasal M.pneumoniae (PCR) Nasal SARS-CoV-2 (PCR) 09/13/23 09/13/23 11:30 12:00 WBC RBC Hgb Hct MCV MCH MCHC RDW Plt Count MPV Neut # (Auto) Lymph # (Auto) [place] # (Auto) Eos # (Auto) Baso # (Auto) Absolute Nucleated RBC Nucleated RBC % Sodium Potassium Chloride Carbon Dioxide Anion Gap BUN Creatinine Estimated GFR (MDRD) Glucose Lactic Acid 1.0 Calcium Magnesium Total Bilirubin AST ALT Alkaline Phosphatase B-Natriuretic Peptide Total Protein Albumin Globulin Albumin/Globulin Ratio Lipase Nasal Adenovirus (PCR) NOT DETECTED Nasal B. parapertussis DNA (PCR) NOT DETECTED Nasal Coronavir 229E PCR NOT DETECTED Nasal Coronavir HKU1 PCR NOT DETECTED Nasal Coronavir NL63 PCR NOT DETECTED Nasal Coronavir OC43 PCR NOT DETECTED Nasal Enterovir/Rhinovir PCR NOT DETECTED Nasal Influenza B PCR NOT DETECTED Nasal Influenza A PCR NOT DETECTED Nasal Parainfluen 1 PCR NOT DETECTED Nasal Parainfluen 2 PCR NOT DETECTED Nasal Parainfluen 3 PCR NOT DETECTED Nasal Parainfluen 4 PCR NOT DETECTED Nasal RSV (PCR) NOT DETECTED Nasal B.pertussis DNA PCR NOT DETECTED Nasal C.pneumoniae (PCR) NOT DETECTED [place] Human Metapneumo PCR DETECTED A Nasal M.pneumoniae (PCR) NOT DETECTED Nasal SARS-CoV-2 (PCR) NOT DETECTED PD Medical Decision Making - ED course Complexity details: reviewed results (has infiltrate appearance on CXR that was not present on recent chest xray/CT in recent ED visit. Has positive viral test, but Sickness long enough to consider bacerial secondary infection as well. Given nebs, steroid for wheezing, abx due to concern of bacterial. ), re- evaluated patient (iproved wheezing and less work of breathing after neb treatments x 2-3. Oxygenation remains adequate ith supplemental NC. ), considered differential, d/w patient, d/w family, d/w merchandising consultant (Hospitalist to have pt treated in hospitali due to pneumonia, work of breathing, hypoxia. ) Reviewed Lab Results: viral panel psoitive for human metapneumovirus. Can account for the wheezing and broncial symptoms/cough/etc. However has been ill for week and a half, and with new infiltrate focally on CXR. Consider also now bacerial too. ED course: He has had cough and some dyspnea for the last 10 to 12 days. He was seen here 10 days ago for initial symptoms of this with prescription of medication for cough and had a chest x-ray as well as a CT of the chest. No signs of blood clots or pneumonia at the time. Family states he has had increased cough and wheezing in particular the last 2 to 3 days. General weakness and fatigue. He presents with marked wheezing and some prolonged expiratory phase. Minimal edema in both legs. He is having a cough with some mild blood-tinged to the sputum. Oxygenation is 86% on room air. It improves to above 90% which is nasal cannula. He is able to talk in sentences. He does not look tired. He is given a DuoNeb treatment with some improvement in his breathing. Repeat albuterol at an interval as the wheezing was increasing again. Initial impression was clinically possibly some edema and I did give some Lasix for some mild leg edema and wet sounds in the bases. However chest x-ray does not look like pulmonary edema per se and his BNP is minimally elevated. His chest x-ray does however show an infiltrate in the right lower lobe that was not present on the CT scan 10 days ago. Concerning would be a secondary bacterial infection of top of the viral illness. His respiratory panel is testing positive for human metapneumovirus today. However he has been ill long enough that consideration for secondary infection as well. He is given IV antibiotics of Rocephin and azithromycin for pneumonia. I did talk with the hospitalist who will come and see the patient for hospital treatment. Departure - Departure Disposition: 66 [facility] DC/Xfer Clinical Impression: Hypoxia, Dyspnea, Human metapneumovirus (hMPV) pneumonia, Hyponatremia, Chronic atrial fibrillation Pneumonia Qualifiers: Laterality: right Lung location: lower lobe of lung Condition: Stable Record reviewed to determine appropriate education?: Yes Discharge Date/Time: 09/13/23 16:22
[2023-09-13 11:28] LABS: BASOPHILS % (AUTO) 0.6 %; EOSINOPHILS % (AUTO) 0.4 %; HCT - HEMATOCRIT 37.5 % (42.0-52.0); HGB - HEMOGLOBIN 11.9 g/dL (14.0-18.0); LYMPHOCYTES # (AUTO) 0.5 10^3/uL (1.5-3.5); MEAN CORPUSCULAR HEMOGLOBIN 27.4 pg (27.0-31.0); MEAN CORPUSCULAR HGB CONC 31.7 g/dL (32.0-36.0); MEAN CORPUSCULAR VOLUME 86.4 fL (80.0-94.0); MEAN PLATELET VOLUME 8.7 fL (7.4-11.4); MONOCYTES # (AUTO) 0.7 10^3/uL (0.0-1.0); MONOCYTES % (AUTO) 13.5 %; NEUTROPHILS # (AUTO) 3.8 10^3/uL (1.5-6.6); NEUTROPHILS % (AUTO) 76.1 %; PLT - PLATELET COUNT 159 10^3/uL (130-450); RED BLOOD COUNT 4.34 10^6/uL (4.70-6.10); RED CELL DISTRIBUTION WIDTH 13.5 % (12.0-15.0)
--- NOTE | 2023-09-13 11:29 | XRAY Report ---
PROCEDURE: Chest 1V INDICATIONS: chest pain TECHNIQUE: One view of the chest was acquired. COMPARISON: 09/03/2023 FINDINGS: Surgical changes and devices: None. Lungs and pleura: Small pleural effusions, right greater than left. Rounded opacity of the right omari g base. Peribronchial cuffing and interstitial markings. Mediastinum: Mediastinal contours appear normal. Heart size is enlarged. Bones and chest wall: No suspicious bony lesions. Overlying soft tissues appear unremarkable. IMPRESSION: Rounded opacity in the right lung base is suggestive of pneumonia. Recommend follow-up x-ray in 1-2 m [facility] [place] to ensure resolution. Mild pulmonary edema with peribronchial cuffing and interstitial markings. Small pleural effusions, right greater than left. Reviewed by: Froilan Alfaro MD on 09/13/2023 11:28 AM PDT Approved by: Froilan Alfaro MD on 09/13/2023 11:28 AM PDT Station ID: [id number]
[2023-09-13] MEDS: FUROSEMIDE 20 MG/2 ML VIAL IVP STA (11:31)
[2023-09-13] MEDS: IPRATROPIUM/ALBUTEROL 3 ML NEB INH STA (11:38)
[2023-09-13 11:49] LABS: ALBUMIN 4.1 g/dL (3.2-5.5); ALBUMIN/GLOBULIN RATIO 1.9 (1.0-2.2); CALCIUM 9.3 mg/dL (8.5-10.3); CREATININE 1.3 mg/dL (0.6-1.3); MAGNESIUM 1.9 mg/dL (1.7-2.3); POTASSIUM 3.8 mmol/L (3.5-4.5); TOTAL PROTEIN 6.3 g/dL (6.4-8.9)
[2023-09-13] MEDS: cefTRIAXone 1 GM VIAL IVP STA (12:11)
[2023-09-13] MEDS: AZITHROMYCIN INJ 500 MG in SODIUM CHLORIDE 0.9% 250 ML IV STA (12:19)
[2023-09-13 12:53] LABS: B. PARAPERTUSSIS- RESP PCR PAN NOT DETECTED; B. PERTUSSIS- RESP PCR PANEL NOT DETECTED; C. PNEUMONIAE- RESP PCR PANEL NOT DETECTED; CORONAVIRUS 229E-RESP PCR NOT DETECTED; CORONAVIRUS HKU1-RESP PCR NOT DETECTED; CORONAVIRUS NL63-RESP PCR NOT DETECTED; CORONAVIRUS OC43-RESP PCR NOT DETECTED; HUMAN METAPNEUMOVIRUS DETECTED; INFLUENZA A- RESP PCR PANEL NOT DETECTED; INFLUENZA B - RESP PCR PANEL NOT DETECTED; M. PNEUMONIAE- RESP PCR PANEL NOT DETECTED; PARAINFLUENZA VIRUS 1 NOT DETECTED; PARAINFLUENZA VIRUS 2 NOT DETECTED; PARAINFLUENZA VIRUS 3 NOT DETECTED; PARAINFLUENZA VIRUS 4 NOT DETECTED; RHINOVIRUS/ENTEROVIRUS NOT DETECTED; RSV- RESP PCR PANEL NOT DETECTED; SARS-CoV-2 -RESP PCR PANEL NOT DETECTED
[2023-09-13] MEDS: cefTRIAXone 1 GM in SODIUM CHLORIDE 0.9% MINIBAG 100 ML IV STA (13:23)
[2023-09-13] MEDS: ALBUTEROL NEB 2.5 MG/3 ML INH STA ×2 (13:25→14:21)
--- NOTE | 2023-09-13 13:52 | HISTORY & PHYSICAL EXAMINATION ---
Chief Complaint - Chief Complaint Chief Complaint: shortness of breath, cough History of Present Illness - Admitted From Admitted From:: ED - History Obtained From Records Reviewed: ED, [facility] History obtained from: patient and his son Exam Limitations: none - History of Present Illness HPI Comment/Other: 78 year old male with a history of hypertension, hyperlipidemia, type 2 diabetes, hypothyroidism, and renal insufficiency is being admitted from the emergency department for worsening shortness of breath. He was seen on 08/30/23 in the ED for a cough. Chest x-ray and CT were unremarkable for a pulmonary embolism or pneumonia at the time. He was discharged with a prescription of furosemide x 3 days. Since then he has been having worsening shortness of breath and a productive cough. The cough has been making it hard for him to sleep and he reported blood tinted sputum that started two days ago. He denies chest pain or palpitations today. He has also been having bilateral lower leg edema for about the past mo nth, per his son. He presented to the ED this morning and his oxygen saturation on room air was 86%, which improved to 90% with a nasal cannula. He was given a DuoNeb treatment which was helpful as well. Chest x-ray revealed a right lower lobe infiltrate and he was started on IV Rocephin and azithromycin for pneumonia. History - Past Medical History Cardiovascular: reports: Hypertension, High cholesterol Respiratory: reports: None Neuro: reports: None Endocrine/Autoimmune: reports: Type 2 diabetes, HyPOthyroidism GI: reports: None : reports: Renal insuffiency HEENT: reports: Other Psych: reports: None Musculoskeletal: reports: Gout Derm: reports: None MRSA Hx?: No - Past Surgical History General: reports: Colonoscopy HEENT: reports: Other - Family & Social History Family History: Mother: , Alzheimer's Disease, Father: Living arrangement: At home Living Situation: With spouse/s.o., With family - Substance History Use: Uses substance without health or social issues: Alcohol (rarely - drinks wine socially on occasion) Abuse: Recurrent use of substance despite neg consequences: NONE Tobacco Details: Cigarettes (history of smoking between 18-29y/o) - POLST Patient has POLST: No POLST Status: Full Code Meds/Allgy - Home Medications Home Medications: Ambulatory Orders Medication Instructions Recorded Confirmed Levothyroxine Sodium [Synthroid] 50 mcg PO DAILY 03/21/18 09/13/23 Losartan [Cozaar] 50 mg PO DAILY 03/21/18 09/13/23 Metoprolol Succinate [Toprol Xl] 100 mg PO DAILY 03/21/18 09/13/23 Simvastatin 40 mg PO DAILY 03/21/18 09/13/23 allopurinoL [Allopurinol] 50 mg PO DAILY 03/21/18 09/13/23 Tamsulosin [Flomax] 0.4 mg PO DAILY 07/18/20 09/13/23 metFORMIN [Glucophage] 500 mg PO BID 07/18/20 09/13/23 Albuterol Sulf [Ventolin Hfa 1 - 2 puffs INH Q4HR PRN 09/13/23 09/13/23 Inhaler] Rivaroxaban [Xarelto] 20 mg ORAL DAILY 09/13/23 09/13/23 - Allergies Allergies/Adverse Reactions: Allergies Allergy/AdvReac Type Severity Reaction Status Date / Time No Known Drug Allergies Allergy Verified 09/13/23 09:33 Review of Systems - Constitutional Constitutional: denies: Fever, Chills, Weakness, Poor appetite, Night sweats, Weight loss - Eyes Eyes: denies: Pain, Blurred vision - Ears, Nose & Throat Ears, Nose & Throat: denies: Ear pain - Cardiovascular Cariovascular: reports: Exertional dyspnea. denies: Irregular heart rate, Palpitations, Chest pain - Respiratory Respiratory: reports: Cough, Sputum production, Wheezing, Hemoptysis (for the past two days patient has been coughing up a light red/pink tinted sputum) - Gastrointestinal Gastrointestinal: denies: Abdominal pain - Genitourinary Genitourinary: denies: Dysuria - Musculoskeletal Musculoskeletal: denies: Muscle pain, Back pain - Integumentary Integumentary: denies: Rash, Pruritis, Lesions - Neurological Neurological: denies: General weakness, Headache - Psychiatric Psychiatric: denies: Suicidal, Homicidal - All Other Systems All Other Systems: reports: Reviewed and negative Prior Level of Functionality: Patient lives in [place] with his and his son's family. He was independent with activities of daily living - walking, grooming, etc. Exam - Vital Signs Vital Signs: Vital Signs x48h Temp Pulse Resp BP Pulse Ox O2 Flow Rate 09/13/23 13:29 88 22 09/13/23 13:26 37 C 98 20 159/83 H 95 2 09/13/23 12:30 94 29 H 145/78 H 93 2 09/13/23 12:01 95 24 178/92 H 95 2 09/13/23 11:38 94 26 H 09/13/23 11:35 91 24 153/77 H 95 2 09/13/23 10:56 88 29 H 151/96 H 92 2 09/13/23 09:41 106 H 26 H 170/99 H 86 L 2 09/13/23 09:33 36.8 C 82 28 H 135/91 H 96 - Physical Exam General Appearance: positive: No acute distress Eyes Bilateral: positive: Normal inspection, PERRL ENT: positive: ENT inspection nml, Pharynx nml, No signs of dehydration Neck: positive: Nml inspection, No JVD, Trachea midline Respiratory: positive: Chest non-tender, No respiratory distress, Wheezes (diffuse wheezing bilaterally) Cardiovascular: positive: Regular rate & rhythm, No murmur, No gallop Abdomen: positive: Non-tender. negative: Guarding, Rebound Skin: positive: Color nml Extremities: positive: Non-tender, Pedal edema Neurologic/Psychiatric: positive: Oriented x3, Sensation nml, Mood/affect nml Conclusion/Plan - Problem List (1) Pneumonia Conclusion/Plan: Chest x-ray showed a rounded opacity in the right lung base with small pleural effusions, right greater than left. Human Metapneumovirus detected on nasal PCR. Supportive measures to treat viral pneumonia - ordered methylprednisolone 40mg IVP daily and Duoneb as needed for wheezing and dyspnea. He likely has a secondary bacterial pneumonia. Sputum culture ordered; pending results. Started on IV Rocephin and azithromycin. Will continue to symptoms for worsening pneumonia or pleural effusions. Qualifiers: Laterality: right Lung location: lower lobe of lung (2) COPD exacerbation Conclusion/Plan: Likely exacerbated by his current pneumonia. Nebulizer treatment performed in the ED was helpful. Oxygen saturation at 93-95% with nasal cannula use at 2L. Ordered methylprednisolone 40mg IVP daily and Duoneb as needed for wheezing and dyspnea. Will continue to monitor his symptoms for another exacerbation. (3) Type 2 diabetes mellitus Conclusion/Plan: Stable. A1c 6.5% on 09/09/23. Continue metformin 500mg orally twice daily and insulin lispro subcutaneously on sliding scale with meals. (4) Hypothyroidism Conclusion/Plan: Stable. Will continue levothyroxine 50mcg orally daily. (5) Chronic atrial fibrillation Conclusion/Plan: Patient reports taking rivaroxaban 20mg daily at home. Currently stable, no respiratory distress; denies palpitations and chest pain. (6) Hypertension Conclusion/Plan: Blood pressure readings in the 110-140s/40-90s today, most recently 112/96. Patient reports taking metoprolol succinate 100mg daily at home. Denies headaches, vision changes, syncope. Will continue to monitor. - Lab Results Fish Bones: 09/13/23 10:50 09/13/23 10:50
[2023-09-13] MEDS ORDERED: SODIUM CHLORIDE FLUSH 0.9% 10 ML SYRINGE IVP PRN (14:45)
--- NOTE | 2023-09-13 17:20 | PHARMACY PROGRESS NOTE ---
- Best Possible Medication History Admit Date and Time: 09/13/23 1449 Processed by: Pharmacy Medications reviewed in ED?: No Medication History completed: Yes Patient Interview: Completed Secondary Source(s): Insurance records As the person ultimately responsible for medication therapy, providers are able to order a medication from an existing home medication list in [facility] via the "Reconcile Routine" prior to Confirmation of that medication by administrative support assoc. Such practice is discouraged except when the physician, in their clinical judgment, deems that a medical need exists for a medication without regard to previous use.
[2023-09-13] MEDS: INSULIN LISPRO 300 UNIT/3 ML PEN SUBQ SCH (17:24)
[2023-09-13] MEDS: SODIUM CHLORIDE FLUSH 0.9% 10 ML SYRINGE IVP SCH (17:24)
[2023-09-13] MEDS: metFORMIN 500 MG TABLET PO SCH (17:32)
[2023-09-13] MEDS: IPRATROPIUM/ALBUTEROL 3 ML NEB INH PRN (19:12)
[2023-09-13] MEDS: guaiFENesin/DEXTROMETHORPHAN 10 ML UDC PO PRN (19:23)
[2023-09-13] MEDS ORDERED: APIXABAN 5 MG TABLET PO SCH (21:00)
[2023-09-14 05:31] LABS: BASOPHILS % (AUTO) 0.9 %; EOSINOPHILS % (AUTO) 0.5 %; HCT - HEMATOCRIT 35.1 % (42.0-52.0); HGB - HEMOGLOBIN 11.2 g/dL (14.0-18.0); LYMPHOCYTES # (AUTO) 0.5 10^3/uL (1.5-3.5); LYMPHOCYTES % (AUTO) 11.7 %; MEAN CORPUSCULAR HEMOGLOBIN 27.5 pg (27.0-31.0); MEAN CORPUSCULAR HGB CONC 31.9 g/dL (32.0-36.0); MEAN PLATELET VOLUME 8.9 fL (7.4-11.4); MONOCYTES # (AUTO) 0.8 10^3/uL (0.0-1.0); MONOCYTES % (AUTO) 17.2 %; NEUTROPHILS # (AUTO) 3.1 10^3/uL (1.5-6.6); NEUTROPHILS % (AUTO) 69.2 %; PLT - PLATELET COUNT 154 10^3/uL (130-450); RED BLOOD COUNT 4.08 10^6/uL (4.70-6.10); RED CELL DISTRIBUTION WIDTH 13.5 % (12.0-15.0); WHITE BLOOD COUNT 4.4 x10^3/uL (4.8-10.8)
[2023-09-14 05:50] LABS: ALBUMIN 3.9 g/dL (3.2-5.5); ALBUMIN/GLOBULIN RATIO 1.6 (1.0-2.2); BILIRUBIN,TOTAL 0.8 mg/dL (0.2-1.0); CREATININE 1.3 mg/dL (0.6-1.3); MAGNESIUM 1.8 mg/dL (1.7-2.3); PHOSPHORUS 3.9 mg/dL (2.5-5.0); POTASSIUM 3.7 mmol/L (3.5-4.5); TOTAL PROTEIN 6.3 g/dL (6.4-8.9)
[2023-09-14] MEDS: LEVOTHYROXINE 100 MCG TABLET PO SCH (06:34)
[2023-09-14] MEDS: predniSONE 20 MG TABLET PO SCH (08:19)
[2023-09-14] MEDS: allopurinoL 100 MG TABLET PO SCH (08:19)
[2023-09-14] MEDS: TAMSULOSIN 0.4 MG CAPSULE PO SCH (08:19)
--- NOTE | 2023-09-14 08:39 | PROVIDER PROGRESS NOTE ---
<Nereyda Alicea - Last Filed: 09/14/23 13:42> Subjective - Prog Note Date Prog Note Date: 09/14/23 Prog Note Time: 08:34 - Subjective Pt reports feeling: Improved Subjective: Patient stated that he is feeling better than he was yesterday, despite a continued cough. His cough is productive with light brown sputum and is worse when lying flat. The cough keeps him up at night and he is therefore very tired and has difficulties staying awake during our conversation. His last Duoneb treatment was at 6:15am this morning - he reports these treatments have been helpful. No difficulties with shortness of breath when standing up or going to use the bathroom. No chest pain or palpitations. Current Medications - Current Medications Current Medications: Medications Ceftriaxone Sodium 2 gm/ (Sodium Chloride) 100 mls @ 200 mls/hr IV 1100 RITA Azithromycin 250 mg/ Sodium (Chloride) 250 mls @ 250 mls/hr IV 1200 RITA Stop: 09/15/23 12:59 Albuterol/Ipratropium (Ipratropium/Albuterol 3 Ml Neb) 3 ml INH Q4HR PRN PRN Reason: Wheezing Last Admin: 09/14/23 06:14 Dose: 3 ml Allopurinol (Allopurinol 100 Mg Tablet) 100 mg PO DAILY [facility] Last Admin: 09/14/23 08:19 Dose: 100 mg Insulin Human Lispro (Insulin Lispro 300 Unit/3 Ml Pen) 2 - 10 unit SUBQ 0800,1200,1700,2100 [facility]; Protocol Last Admin: 09/14/23 08:20 Dose: Not Given Levothyroxine Sodium (Levothyroxine 100 Mcg Tablet) 50 mcg PO QDAC [facility] Last Admin: 09/14/23 06:34 Dose: 50 mcg Metformin HCl (Metformin 500 Mg Tablet) 500 mg PO BIDWM [facility] Last Admin: 09/14/23 08:20 Dose: 500 mg Tamsulosin HCl (Tamsulosin 0.4 Mg Capsule) 0.4 mg PO DAILY [facility] Last Admin: 09/14/23 08:19 Dose: 0.4 mg Methylprednisolone (Methylprednisolone Succinate 40 Mg/Ml Vial) 40 mg IVP DAILY [facility] Objective - Vital Signs/Intake & Output Reviewed Vital Signs: Yes Vital Signs: Vital Signs x48h Pulse Resp Pulse Ox O2 Flow Rate 06/25/24 06:15 78 20 2 09/14/23 03:30 95 2 09/14/23 03:05 92 20 3 09/14/23 02:57 93 3 Intake & Output: Intake & Output 09/11/23 09/12/23 09/13/23 09/14/23 23:59 23:59 23:59 23:59 Intake Total 470 Output Total 250 500 Balance 220 -500 - Objective General Appearance: positive: No acute distress Eyes Bilateral: positive: Normal inspection, PERRL ENT: positive: ENT inspection nml Neck: positive: Nml inspection, No JVD Respiratory: positive: Chest non-tender, No respiratory distress, Wheezes Cardiovascular: positive: Regular rate & rhythm, No murmur, No gallop Abdomen: positive: Non-tender, Nml bowel sounds Back: positive: Nml inspection Skin: positive: Color nml Extremities: positive: Non-tender, Pedal edema Neurologic/Psychiatric: positive: Oriented x3 - Lab Results Fish Bones: 09/14/23 04:35 09/14/23 04:35 Other Labs: Lab Results x24hrs 09/14/23 09/14/23 09/14/23 Range/Units 07:52 04:35 04:35 WBC 4.4 L (4.8-10.8) x10^3/uL RBC 4.08 L (4.70-6.10) 10^6/uL Hgb 11.2 L (14.0-18.0) g/dL Hct 35.1 L (42.0-52.0) % MCV 86.0 (80.0-94.0) fL MCH 27.5 (27.0-31.0) pg MCHC 31.9 L (32.0-36.0) g/dL RDW 13.5 (12.0-15.0) % Plt Count 154 (130-450) 10^3/uL MPV 8.9 (7.4-11.4) fL Neut # (Auto) 3.1 (1.5-6.6) 10^3/uL Lymph # (Auto) 0.5 L (1.5-3.5) 10^3/uL [place] # (Auto) 0.8 (0.0-1.0) 10^3/uL Eos # (Auto) 0.0 (0.0-0.7) 10^3/uL Baso # (Auto) 0.0 (0.0-0.1) 10^3/uL Absolute Nucleated RBC 0.00 x10^3/uL Nucleated RBC % 0.0 /100WBC Sodium 131 L (135-145) mmol/L Potassium 3.7 (3.5-4.5) mmol/L Chloride 98 L (101-111) mmol/L Carbon Dioxide 27 (21-32) mmol/L Anion Gap 6.0 (6-13) BUN 24 H (6-20) mg/dL Creatinine 1.3 (0.6-1.3) mg/dL Estimated GFR (MDRD) 53 L (>89) Glucose 125 H (74-104) mg/dL POC Whole Bld Glucose 117 H (70 - 100) mg/dL Lactic Acid (0.5-2.2) mmol/L Calcium 9.0 (8.5-10.3) mg/dL Phosphorus 3.9 (2.5-5.0) mg/dL Magnesium 1.8 (1.7-2.3) mg/dL Total Bilirubin 0.8 (0.2-1.0) mg/dL AST 34 (10-42) IU/L ALT 23 (10-60) IU/L Alkaline Phosphatase 59 (42-121) IU/L B-Natriuretic Peptide Total Protein 6.3 L (6.4-8.9) g/dL Albumin 3.9 (3.2-5.5) g/dL Globulin 2.4 (2.1-4.2) g/dL Albumin/Globulin Ratio 1.6 (1.0-2.2) Lipase (11-82) U/L Nasal Adenovirus (PCR) Nasal B. parapertussis DNA (PCR) Nasal Coronavir 229E PCR Nasal Coronavir HKU1 PCR Nasal Coronavir NL63 PCR Nasal Coronavir OC43 PCR Nasal Enterovir/Rhinovir PCR Nasal Influenza B PCR Nasal Influenza A PCR Nasal Parainfluen 1 PCR Nasal Parainfluen 2 PCR Nasal Parainfluen 3 PCR Nasal Parainfluen 4 PCR Nasal RSV (PCR) Nasal B.pertussis DNA PCR Nasal C.pneumoniae (PCR) [place] Human Metapneumo PCR Nasal M.pneumoniae (PCR) Nasal SARS-CoV-2 (PCR) 09/13/23 09/13/23 09/13/23 Range/Units 20:43 16:32 12:00 WBC (4.8-10.8) x10^3/uL RBC (4.70-6.10) 10^6/uL Hgb (14.0-18.0) g/dL Hct (42.0-52.0) % MCV (80.0-94.0) fL MCH (27.0-31.0) pg MCHC (32.0-36.0) g/dL RDW (12.0-15.0) % Plt Count (130-450) 10^3/uL MPV (7.4-11.4) fL Neut # (Auto) (1.5-6.6) 10^3/uL Lymph # (Auto) (1.5-3.5) 10^3/uL [place] # (Auto) (0.0-1.0) 10^3/uL Eos # (Auto) (0.0-0.7) 10^3/uL Baso # (Auto) (0.0-0.1) 10^3/uL Absolute Nucleated RBC x10^3/uL Nucleated RBC % /100WBC Sodium (135-145) mmol/L Potassium (3.5-4.5) mmol/L Chloride (101-111) mmol/L Carbon Dioxide (21-32) mmol/L Anion Gap (6-13) BUN (6-20) mg/dL Creatinine (0.6-1.3) mg/dL Estimated GFR (MDRD) (>89) Glucose (74-104) mg/dL POC Whole Bld Glucose 155 H 145 H (70 - 100) mg/dL Lactic Acid (0.5-2.2) mmol/L Calcium (8.5-10.3) mg/dL Phosphorus (2.5-5.0) mg/dL Magnesium (1.7-2.3) mg/dL Total Bilirubin (0.2-1.0) mg/dL AST (10-42) IU/L ALT (10-60) IU/L Alkaline Phosphatase (42-121) IU/L B-Natriuretic Peptide Total Protein (6.4-8.9) g/dL Albumin (3.2-5.5) g/dL Globulin (2.1-4.2) g/dL Albumin/Globulin Ratio (1.0-2.2) Lipase (11-82) U/L Nasal Adenovirus (PCR) NOT DETECTED Nasal B. parapertussis DNA (PCR) NOT DETECTED Nasal Coronavir 229E PCR NOT DETECTED Nasal Coronavir HKU1 PCR NOT DETECTED Nasal Coronavir NL63 PCR NOT DETECTED Nasal Coronavir OC43 PCR NOT DETECTED Nasal Enterovir/Rhinovir PCR NOT DETECTED Nasal Influenza B PCR NOT DETECTED Nasal Influenza A PCR NOT DETECTED Nasal Parainfluen 1 PCR NOT DETECTED Nasal Parainfluen 2 PCR NOT DETECTED Nasal Parainfluen 3 PCR NOT DETECTED Nasal Parainfluen 4 PCR NOT DETECTED Nasal RSV (PCR) NOT DETECTED Nasal B.pertussis DNA PCR NOT DETECTED Nasal C.pneumoniae (PCR) NOT DETECTED [place] Human Metapneumo PCR DETECTED A Nasal M.pneumoniae (PCR) NOT DETECTED Nasal SARS-CoV-2 (PCR) NOT DETECTED 09/13/23 09/13/23 09/13/23 Range/Units 11:30 10:50 10:50 WBC (4.8-10.8) x10^3/uL RBC (4.70-6.10) 10^6/uL Hgb (14.0-18.0) g/dL Hct (42.0-52.0) % MCV (80.0-94.0) fL MCH (27.0-31.0) pg MCHC (32.0-36.0) g/dL RDW (12.0-15.0) % Plt Count (130-450) 10^3/uL MPV (7.4-11.4) fL Neut # (Auto) (1.5-6.6) 10^3/uL Lymph # (Auto) (1.5-3.5) 10^3/uL [place] # (Auto) (0.0-1.0) 10^3/uL Eos # (Auto) (0.0-0.7) 10^3/uL Baso # (Auto) (0.0-0.1) 10^3/uL Absolute Nucleated RBC x10^3/uL Nucleated RBC % /100WBC Sodium 129 L (135-145) mmol/L Potassium 3.8 (3.5-4.5) mmol/L Chloride 98 L (101-111) mmol/L Carbon Dioxide 25 (21-32) mmol/L Anion Gap 6.0 (6-13) BUN 24 H (6-20) mg/dL Creatinine 1.3 (0.6-1.3) mg/dL Estimated GFR (MDRD) 53 L (>89) Glucose 132 H (74-104) mg/dL POC Whole Bld Glucose (70 - 100) mg/dL Lactic Acid 1.0 (0.5-2.2) mmol/L Calcium 9.3 (8.5-10.3) mg/dL Phosphorus (2.5-5.0) mg/dL Magnesium 1.9 (1.7-2.3) mg/dL Total Bilirubin 1.0 (0.2-1.0) mg/dL AST 27 (10-42) IU/L ALT 20 (10-60) IU/L Alkaline Phosphatase 64 (42-121) IU/L B-Natriuretic Peptide 403 H Cancelled Total Protein 6.3 L (6.4-8.9) g/dL Albumin 4.1 (3.2-5.5) g/dL Globulin 2.2 (2.1-4.2) g/dL Albumin/Globulin Ratio 1.9 (1.0-2.2) Lipase 18 (11-82) U/L Nasal Adenovirus (PCR) Nasal B. parapertussis DNA (PCR) Nasal Coronavir 229E PCR Nasal Coronavir HKU1 PCR Nasal Coronavir NL63 PCR Nasal Coronavir OC43 PCR Nasal Enterovir/Rhinovir PCR Nasal Influenza B PCR Nasal Influenza A PCR Nasal Parainfluen 1 PCR Nasal Parainfluen 2 PCR Nasal Parainfluen 3 PCR Nasal Parainfluen 4 PCR Nasal RSV (PCR) Nasal B.pertussis DNA PCR Nasal C.pneumoniae (PCR) [place] Human Metapneumo PCR Nasal M.pneumoniae (PCR) Nasal SARS-CoV-2 (PCR) 09/13/23 Range/Units 10:50 WBC 5.0 (4.8-10.8) x10^3/uL RBC 4.34 L (4.70-6.10) 10^6/uL Hgb 11.9 L (14.0-18.0) g/dL Hct 37.5 L (42.0-52.0) % MCV 86.4 (80.0-94.0) fL MCH 27.4 (27.0-31.0) pg MCHC 31.7 L (32.0-36.0) g/dL RDW 13.5 (12.0-15.0) % Plt Count 159 (130-450) 10^3/uL MPV 8.7 (7.4-11.4) fL Neut # (Auto) 3.8 (1.5-6.6) 10^3/uL Lymph # (Auto) 0.5 L (1.5-3.5) 10^3/uL [place] # (Auto) 0.7 (0.0-1.0) 10^3/uL Eos # (Auto) 0.0 (0.0-0.7) 10^3/uL Baso # (Auto) 0.0 (0.0-0.1) 10^3/uL Absolute Nucleated RBC 0.00 x10^3/uL Nucleated RBC % 0.0 /100WBC Sodium (135-145) mmol/L Potassium (3.5-4.5) mmol/L Chloride (101-111) mmol/L Carbon Dioxide (21-32) mmol/L Anion Gap (6-13) BUN (6-20) mg/dL Creatinine (0.6-1.3) mg/dL Estimated GFR (MDRD) (>89) Glucose (74-104) mg/dL POC Whole Bld Glucose (70 - 100) mg/dL Lactic Acid (0.5-2.2) mmol/L Calcium (8.5-10.3) mg/dL Phosphorus (2.5-5.0) mg/dL Magnesium (1.7-2.3) mg/dL Total Bilirubin (0.2-1.0) mg/dL AST (10-42) IU/L ALT (10-60) IU/L Alkaline Phosphatase (42-121) IU/L B-Natriuretic Peptide Total Protein (6.4-8.9) g/dL Albumin (3.2-5.5) g/dL Globulin (2.1-4.2) g/dL Albumin/Globulin Ratio (1.0-2.2) Lipase (11-82) U/L Nasal Adenovirus (PCR) Nasal B. parapertussis DNA (PCR) Nasal Coronavir 229E PCR Nasal Coronavir HKU1 PCR Nasal Coronavir NL63 PCR Nasal Coronavir OC43 PCR Nasal Enterovir/Rhinovir PCR Nasal Influenza B PCR Nasal Influenza A PCR Nasal Parainfluen 1 PCR Nasal Parainfluen 2 PCR Nasal Parainfluen 3 PCR Nasal Parainfluen 4 PCR Nasal RSV (PCR) Nasal B.pertussis DNA PCR Nasal C.pneumoniae (PCR) [place] Human Metapneumo PCR Nasal M.pneumoniae (PCR) Nasal SARS-CoV-2 (PCR) ABX Reporting Has patient been on IV antibiotics over the past 48 hours?: Yes Assessment/Plan - Problem List (1) Pneumonia Impression: Chest x-ray showed a rounded opacity in the right lung base with small pleural effusions, right greater than left. Human Metapneumovirus detected on nasal PCR. Supportive measures to treat viral pneumonia - prednisone 40mg daily and Duoneb as needed for wheezing and dyspnea. He likely has a secondary bacterial pneumonia. Pending results of sputum culture. He is on day 2 of IV Rocephin and azithromycin. Will continue to symptoms for worsening pneumonia or pleural effusions. Qualifiers: Laterality: right Lung location: lower lobe of lung (2) COPD exacerbation Impression: Likely exacerbated by pneumonia; not controlled. Patient continues to complain of a dry cough that keeps him up at night which is causing him to be very drowsy. Duoneb has been helpful - last treatment was at 6:15am this morning. Oxygen saturation at 96-98% with nasal cannula use at 2L. Changed IV methylprednisolone 40mg daily to prednisone 40mg orally daily. Ordered benzonatate 100mg orally three times daily as needed for cough suppressant. Continue Duoneb as needed. Will continue to monitor his symptoms for another exacerbation. (3) Type 2 diabetes mellitus Impression: Stable. A1c 6.5% on 09/09/23. Continue metformin 500mg orally twice daily and insulin lispro subcutaneously on sliding scale with meals. (4) Hypothyroidism Impression: Stable. Will continue levothyroxine 50mcg orally daily. (5) Chronic atrial fibrillation Impression: Patient reports taking rivaroxaban 20mg daily at home. Ordered apixaban 5mg twice daily. Currently stable, no respiratory distress; denies palpitations and chest pain. (6) Hypertension Impression: Restarted metoprolol 50mg daily and amlodipine 10mg daily today. Denies headaches, vision changes, syncope. Will continue to monitor. <Janel Marrero - Last Filed: 09/14/23 14:19> Objective - Vital Signs/Intake & Output Vital Signs: Vital Signs x48h Temp Pulse Resp BP Pulse Ox O2 Flow Rate 09/14/23 08:00 37 C 90 16 141/90 H 97 2 Intake & Output: Intake & Output 09/11/23 09/12/23 09/13/23 09/14/23 23:59 23:59 23:59 23:59 Intake Total 470 600 Output Total 250 950 Balance 220 -350 - Lab Results Fish Bones: 09/14/23 04:35 09/14/23 04:35 Other Labs: Lab Results x24hrs 09/14/23 09/14/23 09/14/23 Range/Units 11:36 07:52 04:35 WBC (4.8-10.8) x10^3/uL RBC (4.70-6.10) 10^6/uL Hgb (14.0-18.0) g/dL Hct (42.0-52.0) % MCV (80.0-94.0) fL MCH (27.0-31.0) pg MCHC (32.0-36.0) g/dL RDW (12.0-15.0) % Plt Count (130-450) 10^3/uL MPV (7.4-11.4) fL Neut # (Auto) (1.5-6.6) 10^3/uL Lymph # (Auto) (1.5-3.5) 10^3/uL [place] # (Auto) (0.0-1.0) 10^3/uL Eos # (Auto) (0.0-0.7) 10^3/uL Baso # (Auto) (0.0-0.1) 10^3/uL Absolute Nucleated RBC x10^3/uL Nucleated RBC % /100WBC Sodium 131 L (135-145) mmol/L Potassium 3.7 (3.5-4.5) mmol/L Chloride 98 L (101-111) mmol/L Carbon Dioxide 27 (21-32) mmol/L Anion Gap 6.0 (6-13) BUN 24 H (6-20) mg/dL Creatinine 1.3 (0.6-1.3) mg/dL Estimated GFR (MDRD) 53 L (>89) Glucose 125 H (74-104) mg/dL POC Whole Bld Glucose 119 H 117 H (70 - 100) mg/dL Calcium 9.0 (8.5-10.3) mg/dL Phosphorus 3.9 (2.5-5.0) mg/dL Magnesium 1.8 (1.7-2.3) mg/dL Total Bilirubin 0.8 (0.2-1.0) mg/dL AST 34 (10-42) IU/L ALT 23 (10-60) IU/L Alkaline Phosphatase 59 (42-121) IU/L Total Protein 6.3 L (6.4-8.9) g/dL Albumin 3.9 (3.2-5.5) g/dL Globulin 2.4 (2.1-4.2) g/dL Albumin/Globulin Ratio 1.6 (1.0-2.2) 09/14/23 09/13/23 09/13/23 Range/Units 04:35 20:43 16:32 WBC 4.4 L (4.8-10.8) x10^3/uL RBC 4.08 L (4.70-6.10) 10^6/uL Hgb 11.2 L (14.0-18.0) g/dL Hct 35.1 L (42.0-52.0) % MCV 86.0 (80.0-94.0) fL MCH 27.5 (27.0-31.0) pg MCHC 31.9 L (32.0-36.0) g/dL RDW 13.5 (12.0-15.0) % Plt Count 154 (130-450) 10^3/uL MPV 8.9 (7.4-11.4) fL Neut # (Auto) 3.1 (1.5-6.6) 10^3/uL Lymph # (Auto) 0.5 L (1.5-3.5) 10^3/uL [place] # (Auto) 0.8 (0.0-1.0) 10^3/uL Eos # (Auto) 0.0 (0.0-0.7) 10^3/uL Baso # (Auto) 0.0 (0.0-0.1) 10^3/uL Absolute Nucleated RBC 0.00 x10^3/uL Nucleated RBC % 0.0 /100WBC Sodium (135-145) mmol/L Potassium (3.5-4.5) mmol/L Chloride (101-111) mmol/L Carbon Dioxide (21-32) mmol/L Anion Gap (6-13) BUN (6-20) mg/dL Creatinine (0.6-1.3) mg/dL Estimated GFR (MDRD) (>89) Glucose (74-104) mg/dL POC Whole Bld Glucose 155 H 145 H (70 - 100) mg/dL Calcium (8.5-10.3) mg/dL Phosphorus (2.5-5.0) mg/dL Magnesium (1.7-2.3) mg/dL Total Bilirubin (0.2-1.0) mg/dL AST (10-42) IU/L ALT (10-60) IU/L Alkaline Phosphatase (42-121) IU/L Total Protein (6.4-8.9) g/dL Albumin (3.2-5.5) g/dL Globulin (2.1-4.2) g/dL Albumin/Globulin Ratio (1.0-2.2)
[2023-09-14] MEDS ORDERED: NON FORMULARY MED (Levothyroxine Sodium [Synthroid] 50 MCG Tablet) PO SCH (09:00)
[2023-09-14] MEDS ORDERED: allopurinoL 100 MG TABLET PO SCH (10:27)
[2023-09-14] MEDS ORDERED: TAMSULOSIN 0.4 MG CAPSULE PO SCH (10:27)
[2023-09-14] MEDS ORDERED: NON FORMULARY MED (Amlodipine Besylate [Norvasc] 10 MG Tablet) PO SCH (10:30)
[2023-09-14] MEDS: cefTRIAXone 2 GM in SODIUM CHLORIDE 0.9% MINIBAG 100 ML IV SCH (10:49)
[2023-09-14] MEDS: METOPROLOL SUCCINATE 50 MG TABLET PO SCH (10:49)
[2023-09-14] MEDS: AZITHROMYCIN INJ 250 MG in SODIUM CHLORIDE 0.9% 250 ML IV SCH (12:11)
[2023-09-14] MEDS ORDERED: methylPREDNISolone SUCCINATE 40 MG/ML VIAL IVP SCH (15:08)
[2023-09-14] MEDS: BENZONATATE 100 MG CAPSULE PO PRN (21:09)
--- NOTE | 2023-09-15 08:23 | XRAY Report ---
PROCEDURE: Chest 1V INDICATIONS: Increased wheezing TECHNIQUE: One view of the chest was acquired. COMPARISON: 09/13/2023. FINDINGS: Surgical changes and devices: None. Lungs and pleura: Continued interstitial pulmonary edema. Resolution of rounded opacity in the right lung base as with resolution of atelectasis. Mediastinum: Mediastinal contours appear normal. At least moderate cardiomegaly, unchanged. Bones and chest wall: No suspicious bony lesions. Overlying soft tissues appear unremarkable. IMPRESSION: Continued congestive heart failure exacerbation. Resolution of rounded density in the right lung base . Reviewed by: Juancarlos Cooney MD on 09/15/2023 8:22 AM PDT Approved by: Juancarlos Cooney MD on 09/15/2023 8:22 AM PDT Station ID: [id number]
--- NOTE | 2023-09-15 08:42 | PROVIDER PROGRESS NOTE ---
Subjective - Prog Note Date Prog Note Date: 09/15/23 Prog Note Time: 08:39 - Subjective Pt reports feeling: Improved (Patient is increasingly alert and reports improving shortness of breath compared to yesterday. His cough continues to keep him up at night, but he was able to get about 3-4 hours of sleep. DuoNeb treatments at 12AM and 8AM - helpful, per patient.) Current Medications - Current Medications Current Medications: Medications Metformin HCl (Metformin 500 Mg Tablet) 500 mg PO BIDWM [facility] Last Admin: 09/14/23 17:04 Dose: 500 mg Apixaban (Apixaban 5 Mg Tablet) 5 mg PO BID [facility] Levothyroxine Sodium (Levothyroxine 100 Mcg Tablet) 50 mcg PO QDAC [facility] Last Admin: 09/15/23 06:58 Dose: 50 mcg Metoprolol Succinate (Metoprolol Succinate 50 Mg Tablet) 50 mg PO DAILY [facility] Last Admin: 09/14/23 10:49 Dose: 50 mg Albuterol/Ipratropium (Ipratropium/Albuterol 3 Ml Neb) 3 ml INH Q4HR PRN PRN Reason: Wheezing Last Admin: 09/15/23 07:45 Dose: 3 ml Allopurinol (Allopurinol 100 Mg Tablet) 200 mg PO DAILY [facility] Amlodipine Besylate (Amlodipine 5 Mg Tablet) 10 mg PO DAILY [facility] Azithromycin 250 mg/ Sodium (Chloride) 250 mls @ 250 mls/hr IV 1200 [facility]ITA Stop: 09/15/23 12:59 Last Admin: 09/14/23 15:34 Dose: Infused Benzonatate (Benzonatate 100 Mg Capsule) 100 mg PO TID PRN PRN Reason: Cough Last Admin: 09/15/23 05:17 Dose: 100 mg Ceftriaxone Sodium 2 gm/ (Sodium Chloride) 100 mls @ 200 mls/hr IV 1100 RITA Last Admin: 09/14/23 15:34 Dose: Infused Guaifenesin (Guaifenesin/Dextromethorphan 10 Ml Udc) 10 ml PO Q6HR PRN PRN Reason: Cough Last Admin: 09/15/23 05:17 Dose: 10 ml Insulin Human Lispro (Insulin Lispro 300 Unit/3 Ml Pen) 2 - 10 unit SUBQ 0800,1200,1700,2100 [facility]; Protocol Last Admin: 09/14/23 20:53 Dose: Not Given Prednisone (Prednisone 20 Mg Tablet) 40 mg PO DAILYWM [facility] Stop: 09/18/23 08:01 Last Admin: 09/14/23 08:19 Dose: 40 mg Tamsulosin HCl (Tamsulosin 0.4 Mg Capsule) 0.8 mg PO DAILY [facility] Objective - Vital Signs/Intake & Output Reviewed Vital Signs: Yes Vital Signs: Vital Signs x48h Temp Pulse Pulse Resp BP Pulse Ox O2 Flow Rate 09/15/23 08:00 36.6 C 75 18 141/79 H 98 09/15/23 07:46 78 20 2 09/15/23 02:28 96 2.5 09/15/23 01:45 93 2 Intake & Output: Intake & Output 09/12/23 09/13/23 09/14/23 09/15/23 23:59 23:59 23:59 23:59 Intake Total 470 1690 200 Output Total 250 950 900 Balance 220 740 -700 - Objective General Appearance: positive: No acute distress, Alert Eyes Bilateral: positive: Normal inspection, PERRL ENT: positive: ENT inspection nml, No signs of dehydration Neck: positive: Nml inspection, No JVD, Trachea midline Respiratory: positive: Chest non-tender, No respiratory distress, Wheezes Cardiovascular: positive: Regular rate & rhythm, No murmur, No gallop Abdomen: positive: Non-tender Back: positive: Nml inspection Skin: positive: Color nml Extremities: positive: Non-tender Neurologic/Psychiatric: positive: Oriented x3 - Lab Results Fish Bones: 09/14/23 04:35 09/14/23 04:35 Other Labs: Lab Results x24hrs 09/15/23 09/14/23 09/14/23 Range/Units 08:01 20:22 16:49 POC Whole Bld Glucose 100 137 H 154 H (70 - 100) mg/dL 09/14/23 Range/Units 11:36 POC Whole Bld Glucose 119 H (70 - 100) mg/dL ABX Reporting Has patient been on IV antibiotics over the past 48 hours?: Yes Assessment/Plan - Problem List (1) Pneumonia Impression: Resolving - CXR this morning showed resolution of rounded opacity in right lung base. Human Metapneumovirus detected on nasal PCR. Supportive measures to treat viral pneumonia - prednisone 40mg daily and Duoneb as needed for wheezing and dyspnea. Secondary bacterial pneumonia - pending results of sputum culture. Day 3 of IV Rocephin and azithromycin. Will continue to symptoms for worsening pneumonia or pleural effusions. Qualifiers: Laterality: right Lung location: lower lobe of lung (2) COPD exacerbation Impression: Improving shortness of breath and cough. Duoneb has been helpful - last treatments were at 12am and 8am this morning. Oxygen saturation at 96-97% on room air. Patient saw PT yesterday and was able to perform ADLs independently. Currently on prednisone 40mg orally daily and benzonatate 100mg orally three times daily as needed for cough suppressant. Continue Duoneb as needed. Continue ambulation with PT. Will hope to discharge tomorrow if he continues to improve. (3) Acute exacerbation of congestive heart failure Impression: CXR this morning revealed continued congestive heart failure exacerbation. Patient has been having SOB, coughing worse when lying down and bilateral 2+ pitting edema of lower extremities. Pt reported a history of congestive heart failure - his last echocardiogram was over a year ago. 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 He is currently on metoprolol succinate 50mg daily. Started patient on IV furosemide 20mg daily. Echocardiogram ordered. (4) Type 2 diabetes mellitus Impression: Stable. POC glucose this morning 100mg/dL. A1c 6.5% on 09/09/23. Continue metformin 500mg orally twice daily and insulin lispro subcutaneously on sliding scale with meals. (5) Hypothyroidism Impression: Stable. Will continue levothyroxine 50mcg orally daily. (6) Chronic atrial fibrillation Impression: Patient reports taking rivaroxaban 20mg daily at home. Taking apixaban 5mg twice daily. Currently stable, no respiratory distress; denies palpitations and chest pain. (7) Hypertension Impression: Taking metoprolol 50mg daily and amlodipine 10mg daily today. Denies headaches, vision changes, syncope. Will continue to monitor.
[2023-09-15] MEDS: TAMSULOSIN 0.4 MG CAPSULE PO SCH (09:21)
[2023-09-15] MEDS: APIXABAN 5 MG TABLET PO SCH (09:21)
[2023-09-15] MEDS: amLODIPine 5 MG TABLET PO SCH (09:22)
[2023-09-15] MEDS: allopurinoL 100 MG TABLET PO SCH (09:23)
[2023-09-15] MEDS: FUROSEMIDE 20 MG/2 ML VIAL IVP ONE (10:46)
[2023-09-16 06:03] LABS: BASOPHILS % (AUTO) 0.2 %; EOSINOPHILS % (AUTO) 0.2 %; HCT - HEMATOCRIT 33.6 % (42.0-52.0); HGB - HEMOGLOBIN 11.3 g/dL (14.0-18.0); LYMPHOCYTES # (AUTO) 0.9 10^3/uL (1.5-3.5); LYMPHOCYTES % (AUTO) 21.3 %; MEAN CORPUSCULAR HEMOGLOBIN 28.4 pg (27.0-31.0); MEAN CORPUSCULAR HGB CONC 33.6 g/dL (32.0-36.0); MEAN CORPUSCULAR VOLUME 84.4 fL (80.0-94.0); MEAN PLATELET VOLUME 8.6 fL (7.4-11.4); MONOCYTES # (AUTO) 0.8 10^3/uL (0.0-1.0); MONOCYTES % (AUTO) 17.8 %; NEUTROPHILS # (AUTO) 2.6 10^3/uL (1.5-6.6); NEUTROPHILS % (AUTO) 60.3 %; NRBC ABSOLUTE COUNT (AUTO) 0.02 x10^3/uL; NUCLEATED RED BLOOD CELLS AUTO 0.5 /100WBC; PLT - PLATELET COUNT 156 10^3/uL (130-450); RED BLOOD COUNT 3.98 10^6/uL (4.70-6.10); RED CELL DISTRIBUTION WIDTH 13.3 % (12.0-15.0); WHITE BLOOD COUNT 4.3 x10^3/uL (4.8-10.8)
[2023-09-16] MEDS: LEVOTHYROXINE 25 MCG TABLET PO SCH (06:05)
[2023-09-16 06:16] LABS: CALCIUM 8.7 mg/dL (8.5-10.3); CREATININE 1.1 mg/dL (0.6-1.3); POTASSIUM 3.9 mmol/L (3.5-4.5)
--- NOTE | 2023-09-16 08:32 | PROVIDER PROGRESS NOTE ---
Subjective - Prog Note Date Prog Note Date: 09/16/23 Prog Note Time: 08:17 - Subjective Pt reports feeling: Improved Subjective: Patient reports feeling a lot better than yesterday. His cough has been improving and he was able to sleep in his bed through the night. He reports walking around his room 15-16 times yesterday. He stated that about three months ago before his respiratory events began he was walking 0.5 miles to the water every other day. Current Medications - Current Medications Current Medications: Medications Insulin Human Lispro (Insulin Lispro 300 Unit/3 Ml Pen) 2 - 10 unit SUBQ 0800,1200,1700,2100 [facility]; Protocol Last Admin: 09/15/23 20:45 Dose: 2 unit Metformin HCl (Metformin 500 Mg Tablet) 500 mg PO BIDWM [facility] Last Admin: 09/15/23 17:08 Dose: 500 mg Tamsulosin HCl (Tamsulosin 0.4 Mg Capsule) 0.8 mg PO DAILY [facility] Last Admin: 09/15/23 09:21 Dose: 0.8 mg Albuterol/Ipratropium (Ipratropium/Albuterol 3 Ml Neb) 3 ml INH Q4HR PRN PRN Reason: Wheezing Last Admin: 09/16/23 07:49 Dose: 3 ml Allopurinol (Allopurinol 100 Mg Tablet) 200 mg PO DAILY [facility] Last Admin: 09/15/23 09:23 Dose: 200 mg Amlodipine Besylate (Amlodipine 5 Mg Tablet) 10 mg PO DAILY [facility] Last Admin: 09/15/23 09:22 Dose: 10 mg Apixaban (Apixaban 5 Mg Tablet) 5 mg PO BID [facility] Last Admin: 09/15/23 20:39 Dose: 5 mg Benzonatate (Benzonatate 100 Mg Capsule) 100 mg PO TID PRN PRN Reason: Cough Last Admin: 09/16/23 06:05 Dose: 100 mg Ceftriaxone Sodium 2 gm/ (Sodium Chloride) 100 mls @ 200 mls/hr IV 1100 [facility] Last Admin: 09/15/23 12:10 Dose: Infused Guaifenesin (Guaifenesin/Dextromethorphan 10 Ml Udc) 10 ml PO Q6HR PRN PRN Reason: Cough Last Admin: 09/15/23 20:39 Dose: 10 ml Levothyroxine Sodium (Levothyroxine 25 Mcg Tablet) 50 mcg PO QDAC [facility] Last Admin: 09/16/23 06:05 Dose: 50 mcg Metoprolol Succinate (Metoprolol Succinate 50 Mg Tablet) 50 mg PO DAILY [facility] Last Admin: 09/15/23 09:23 Dose: 50 mg Prednisone (Pred[facility]one 20 Mg Tablet) [facility] Stop: 09/18/23 08:01 Last Admin: 09/15/23 08:45 Dose: 40 mg Objective - Vital Signs/Intake & Output Reviewed Vital Signs: Yes Vital Signs: Vital Signs x48h Temp Pulse Pulse Resp BP Pulse Ox 09/16/23 08:03 36.5 C 83 24 120/79 95 09/16/23 07:52 82 20 09/16/23 00:46 36.6 C 62 20 127/89 H 95 Intake & Output: Intake & Output 09/13/23 09/14/23 09/15/23 09/16/23 23:59 23:59 23:59 23:59 Intake Total 470 1690 1790 500 Output Total 934 502 2126 1475 Balance 220 740 365 975 - Objective General Appearance: positive: No acute distress, Alert Eyes Bilateral: positive: Normal inspection, PERRL ENT: positive: ENT inspection nml Neck: positive: Nml inspection, No JVD, Trachea midline Respiratory: positive: Chest non-tender, No respiratory distress, Wheezes Cardiovascular: positive: Regular rate & rhythm, No murmur, No gallop Abdomen: positive: Non-tender Back: positive: Nml inspection Skin: positive: Color nml Extremities: positive: Non-tender, Pedal edema Neurologic/Psychiatric: positive: Oriented x3, Sensation nml, Mood/affect nml - Lab Results Fish Bones: 09/16/23 05:49 09/16/23 05:49 Other Labs: Lab Results x24hrs 09/16/23 09/16/23 09/16/23 Range/Units 07:46 05:49 05:49 WBC 4.3 L (4.8-10.8) x10^3/uL RBC 3.98 L (4.70-6.10) 10^6/uL Hgb 11.3 L (14.0-18.0) g/dL Hct 33.6 L (42.0-52.0) % MCV 84.4 (80.0-94.0) fL MCH 28.4 (27.0-31.0) pg MCHC 33.6 (32.0-36.0) g/dL RDW 13.3 (12.0-15.0) % Plt Count 156 (130-450) 10^3/uL MPV 8.6 (7.4-11.4) fL Neut # (Auto) 2.6 (1.5-6.6) 10^3/uL Lymph # (Auto) 0.9 L (1.5-3.5) 10^3/uL Dougherty # (Auto) 0.8 (0.0-1.0) 10^3/uL Eos # (Auto) 0.0 (0.0-0.7) 10^3/uL Baso # (Auto) 0.0 (0.0-0.1) 10^3/uL Absolute Nucleated RBC 0.02 x10^3/uL Nucleated RBC % 0.5 /100WBC Sodium 128 L (135-145) mmol/L Potassium 3.9 (3.5-4.5) mmol/L Chloride 96 L (101-111) mmol/L Carbon Dioxide 27 (21-32) mmol/L Anion Gap 5.0 L (6-13) BUN 26 H (6-20) mg/dL Creatinine 1.1 (0.6-1.3) mg/dL Estimated GFR (MDRD) 65 L (>89) Glucose 104 (74-104) mg/dL POC Whole Bld Glucose 91 (70 - 100) mg/dL Calcium 8.7 (8.5-10.3) mg/dL 09/15/23 09/15/23 09/15/23 Range/Units 20:42 16:32 11:16 WBC (4.8-10.8) x10^3/uL RBC (4.70-6.10) 10^6/uL Hgb (14.0-18.0) g/dL Hct (42.0-52.0) % MCV (80.0-94.0) fL MCH (27.0-31.0) pg MCHC (32.0-36.0) g/dL RDW (12.0-15.0) % Plt Count (130-450) 10^3/uL MPV (7.4-11.4) fL Neut # (Auto) (1.5-6.6) 10^3/uL Lymph # (Auto) (1.5-3.5) 10^3/uL Dougherty # (Auto) (0.0-1.0) 10^3/uL Eos # (Auto) (0.0-0.7) 10^3/uL Baso # (Auto) (0.0-0.1) 10^3/uL Absolute Nucleated RBC x10^3/uL Nucleated RBC % /100WBC Sodium (135-145) mmol/L Potassium (3.5-4.5) mmol/L Chloride (101-111) mmol/L Carbon Dioxide (21-32) mmol/L Anion Gap (6-13) BUN (6-20) mg/dL Creatinine (0.6-1.3) mg/dL Estimated GFR (MDRD) (>89) Glucose (74-104) mg/dL POC Whole Bld Glucose 154 H 147 H 105 H (70 - 100) mg/dL Calcium (8.5-10.3) mg/dL Assessment/Plan - Problem List (1) Pneumonia Impression: Improving. CXR yesterday showed resolution of rounded opacity in right lung base. Continue antibiotics - currently on day 4 of IV Rocephin and azithromycin. Sputum culture ordered, pending results. Qualifiers: Laterality: right Lung location: lower lobe of lung (2) COPD exacerbation Impression: Improving shortness of breath and cough. Duoneb has been helpful - last treatment at 8am this morning. Oxygen saturation at 94-95% on room air. Patient reports walking around his room 15-16 times yesterday. Currently on prednisone 40mg orally daily and benzonatate 100mg orally three times daily as needed for cough suppressant. Continue Duoneb as needed. If patient does not have dyspnea with PT will consider discharge today. (3) Acute exacerbation of congestive heart failure Impression: Patient was given 20mg inj of furosemide yesterday. He reports improved shortness of breath and was able to lie down in his bed to sleep last night. Pt reports a history of congestive heart failure - his last echocardiogram and cardiac stress test was over a year ago. 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 Td Simmons in [place] - next appointment is 01/2024. Advised patient to make a follow-up appointment with his supervisor instrument maintenance upon discharge. Echocardiogram ordered - pending results. He is currently on metoprolol succinate 50mg daily. Will plan to prescribe furosemide 20mg on discharge. (4) Type 2 diabetes mellitus Impression: Stable. POC glucose this morning 91mg/dL. A1c 6.5% on 09/09/23. Continue metformin 500mg orally twice daily and insulin lispro subcutaneously on sliding scale with meals. (5) Hypothyroidism Impression: Stable. Will continue levothyroxine 50mcg orally daily. (6) Chronic atrial fibrillation Impression: Patient reports taking rivaroxaban 20mg daily at home. Taking apixaban 5mg twice daily. Currently stable, no respiratory distress; denies palpitations and chest pain. (7) Hypertension Impression: Blood pressure in the 120s/70-80s. Taking metoprolol 50mg daily and amlodipine 10mg daily. Denies headaches, vision changes, syncope. Will continue to monitor.
--- NOTE | 2023-09-16 12:16 | Discharge Plan ---
Discharge Plan Problem Reviewed?: Yes Disposition: Home, Self Care Condition: Stable Prescriptions: Amox/Clav 875/125 [Augmentin 875/125 Tab] 1 tablet PO Q12H 3 Days #6 tablet predniSONE [Deltasone] 40 mg PO DAILYWM #5 tab Furosemide [Lasix] 20 mg PO ONCE #30 tablet Albuterol Sulfate [Proair Respiclick] 90 mcg IH Q4H PRN #1 each PRN Reason: Wheezing Diet: Cardiac Additional Instructions or Follow Up instructions: Please follow up with your PCP. We have started you on Lasix 20 mg daily. Your Echo results are pending. No Smoking: If you smoke, Please STOP! Call for help.
--- NOTE | 2023-09-16 12:17 | DISCHARGE SUMMARY ---
Discharge Summary Admit Date: 09/13/23 Discharge Date: 09/16/23 Discharging Provider: Janel Marrero Code Status: Attempt Resuscitation Condition at Discharge: Good Discharge Disposition: 01 Home, Self Care - HPI History of Present Illness: 78 year old male with a history of hypertension, hyperlipidemia, type 2 diabetes, hypothyroidism, and renal insufficiency is being admitted from the emergency department for worsening shortness of breath. He was seen on 08/30/23 in the ED for a cough. Chest x-ray and CT were unremarkable for a pulmonary embolism or pneumonia at the time. He was discharged with a prescription of furosemide x 3 days. Since then he has been having worsening shortness of breath and a productive cough. The cough has been making it hard for him to sleep and he reported blood tinted sputum that started two days ago. He denies chest pain or palpitations today. He has also been having bilateral lower leg edema for about the past month, per his son. He presented to the ED this morning and his oxygen saturation on room air was 86%, which improved to 90% with a nasal cannula. He was given a DuoNeb treatment which was helpful as well. Chest x-ray revealed a right lower lobe infiltrate and he was started on IV Rocephin and azithromycin for pneumonia. - HOSPITAL COURSE Hospital Course: Patient is a 78-year-old male who presented to the ED due to progressively worsening shortness of breath. Chest x-ray was performed which revealed a right lower lobe infiltrate and he was subsequently admitted and started on IV azithromycin and ceftriaxone. He did test positive for human metapneumovirus but was believed to have a superimposed bacterial pneumonia. Patient was noted to be hypoxic requiring supplemental oxygen. He was also noted to be quite wheezy and started on systemic glucocorticoids. Patient was found to have significant lower extremity edema and a repeat chest x-ray did show progressive pulmonary edema. He reported that he does have follow-up with cardiology and has had previous stress test in the past. As he was subsequently weaned off of oxygen he was discharged. Patient was placed on oral antibiotics as well as prednisone 40 mg for a total of 7 days. He was also started on oral Lasix 20 mg 3 times weekly. He was given a dose of IV Lasix while inpatient and became hyponatremic therefore we were conservative with Lasix use on discharge. I recommended he follow-up with his PCP for repeat BMP and call his steel turner to expedite his cardiology appointment. We did perform a TTE while inpatient however results were not back by date of discharge. Patient did not require any supplemental oxygen with ambulation. - ALLERGIES Allergies/Adverse Reactions: Allergies Allergy/AdvReac Type Severity Reaction Status Date / Time No Known Drug Allergies Allergy Verified 09/13/23 09:33 - MEDICATIONS Home Medications: Ambulatory Orders Medication Instructions Recorded Confirmed RX: Levothyroxine Sodium 50 mcg PO DAILY 03/21/18 09/13/23 [Synthroid] RX: allopurinoL [Allopurinol] 200 mg PO DAILY 03/21/18 09/13/23 RX: Tamsulosin [Flomax] 0.8 mg PO DAILY 07/18/20 09/13/23 RX: metFORMIN [Glucophage] 500 mg PO BID 07/18/20 09/13/23 RX: Acetaminophen [Tylenol] 500 mg PO Q6HR PRN 09/13/23 09/13/23 RX: Amlodipine Besylate [Norvasc] 10 mg PO DAILY 09/13/23 09/13/23 RX: Finasteride [Proscar] 5 mg PO DAILY 09/13/23 09/13/23 RX: Losartan Potassium 100 mg PO DAILY 09/13/23 09/13/23 RX: Metoprolol Succinate [Toprol 50 mg PO DAILY 09/13/23 09/13/23 Xl] RX: Rivaroxaban [Xarelto] 20 mg ORAL DAILY 09/13/23 09/13/23 RX: Rosuvastatin Calcium 20 mg PO Q48H 09/13/23 09/13/23 Albuterol Sulfate [Proair 90 mcg IH Q4H PRN #1 each 09/16/23 Respiclick] Amox/Clav 875/125 [Augmentin 1 tablet PO Q12H 3 Days #6 tablet 09/16/23 875/125 Tab] Furosemide [Lasix] 20 mg PO ONCE #30 tablet 09/16/23 RX: predniSONE [Deltasone] 40 mg PO DAILYWM #5 tab 09/16/23 - PHYSICAL EXAM AT DISCHARGE General Appearance: positive: No acute distress, Alert Respiratory: positive: Chest non-tender, No respiratory distress, Breath sounds nml Cardiovascular: positive: Regular rate & rhythm, No murmur, No gallop Abdomen: positive: Non-tender, No organomegaly, Nml bowel sounds Extremities: positive: Non-tender, Full ROM, Pedal edema - LABS Result Diagrams: 09/16/23 05:49 09/16/23 05:49 - FOLLOW UP Follow Up: Follow up with PCP and Cardiology. He was started on oral lasix, will need a repeat BMP in the short term. - TIME SPENT Time Spent in Discharge (Minutes): 30
[2023-09-16 12:57] VITALS: BP 118/74; O2SAT 98
== END 2023-09-16 14:25 | disposition home or self-care (01) | DRG 194 ==
LOC: ED 09:28 → MS2 14:45
PROVIDERS: ADMIT Internal Medicine; ATTEND Family Medicine
DX: J12.3 Human metapneumovirus pneumonia (principal); E87.1 Hypo-osmolality and hyponatremia; I48.20 Chronic atrial fibrillation, unspecified; J44.0 Chronic obstructive pulmonary disease with (acute) lower respiratory infection; J44.1 Chronic obstructive pulmonary disease with (acute) exacerbation; Z87.891 Personal history of nicotine dependence; J15.9 Unspecified bacterial pneumonia; E78.00 Pure hypercholesterolemia, unspecified; R09.02 Hypoxemia; E11.9 Type 2 diabetes mellitus without complications; Z79.84 Long term (current) use of oral hypoglycemic drugs; E03.9 Hypothyroidism, unspecified; Z79.01 Long term (current) use of anticoagulants; E78.5 Hyperlipidemia, unspecified; N28.9 Disorder of kidney and ureter, unspecified; I11.0 Hypertensive heart disease with heart failure; I50.9 Heart failure, unspecified
CPT/HCPCS: 36415; 71045; 80048; 80053; 83605; 83690; 83735; 83880; 84100; 85025; 87070; 87205; 87633; 93005; 94640; 94664; 96365; 96367; 96375; 97161; 97165; 97530; 99285; A9270; J7512

== ENCOUNTER 2023-09-18 09:11 | Outpatient (CLI) | payer MEDICARE, OTHER ==
[2023-09-18 19:12] LABS: CALCIUM 9.1 mg/dL (8.5-10.3); CREATININE 1.3 mg/dL (0.6-1.3); POTASSIUM 3.8 mmol/L (3.5-4.5)
== END 2023-09-18 09:12 | disposition home or self-care (01) ==
LOC: LAB.N 09:11
PROVIDERS: ATTEND Internal Medicine
DX: I12.9 Hypertensive chronic kidney disease with stage 1 through stage 4 chronic kidney disease, or unspecified chronic kidney disease (principal); N18.31 Chronic kidney disease, stage 3a
CPT/HCPCS: 36415; 80048

== ENCOUNTER 2023-11-15 14:20 | Outpatient (CLI) | payer MEDICARE, OTHER ==
[2023-11-15 17:33] LABS: CALCIUM 9.5 mg/dL (8.5-10.3); CREATININE 1.4 mg/dL (0.6-1.3)
== END 2023-11-15 14:21 | disposition home or self-care (01) ==
LOC: LAB.N 14:20
PROVIDERS: ATTEND Internal Medicine
DX: I50.30 Unspecified diastolic (congestive) heart failure (principal)
CPT/HCPCS: 36415; 80048